=== PATIENT | male | born 1955 | race Caucasian/White ===

== ENCOUNTER 2016-12-05 04:07 | Emergency (ER) | payer OTHER ==
[~2016-12-05] VITALS: Ht 170.2 cm; Wt 81.9 kg
[~2016-12-05 04:07] MED LIST: SYN112 PO; metoprolol PO
[2016-12-05 04:09] VITALS: TEMP 36.5; Ht 170.2 cm; Wt 81.9 kg
[2016-12-05] MEDS ORDERED: SODIUM CHLORIDE 0.9% 1000ML 1,000 ML IV STA (04:27)
--- NOTE | 2016-12-05 04:28 | EMERGENCY ROOM VISIT NOTE ---
History Report prepared by Kumaribsabiha: Hima Garces Under the Supervision of: Fabiola WeaverO. First contact with patient: 04:12 Chief Complaint: VOMITING Stated Complaint: NAUSEA,VOMITING BLOOD? History of Present Illness The patient is a 61 year old male who presents to the Emergency Room with complaints of resolved blood in vomit occurring about one and a half hours ago. He had some abdominal which has resolved. He currently denies any nausea or pain. He currently complains of tiredness. He has chronic rectal bleeding related to hemorrhoids and a colonoscopy. He denies any history of endoscopy. He has a family history of bleeding ulcer but denies any personal history of ulcers. He denies any excessive alcohol use. He does not take any blood thinners. He took Mickie Hollister plus last evening around 6 pm for cold-like symptoms. The patient denies fevers, chills, or any other complaints. Source of History: patient Onset: about one and a half hours ago Position: other (global) Symptom Intensity: No pain Quality: other (Blood in vomit) Timing: resolved Associated Symptoms: + abdominal pain (resolved), + nausea (resolved), No chills, No fevers Review of Systems See HPI for pertinent positives and negatives. A total of ten systems were reviewed and were otherwise negative. Past Medical & Surgical Medical Problems: (1) Hemorrhoids (2) Thyroid disease Surgical Problems: (1) H/O colonoscopy Family History Patient reports no known family medical history. Social History Smoking Status: Never Smoker Marital Status: Occupation Status: employed Current/Historical Medications Scheduled Levothyroxine Sodium (Levothyroxine Sodium), 1 TAB PO DAILY Metoprolol Succ (Toprol Xl) (Toprol-Xl ), 200 MG PO DAILY Allergies Coded Allergies: No Known Allergies (Verified , 12/05/16) Physical Exam Vital Signs Date Time Temp Pulse Resp B/P Pulse Ox O2 Delivery O2 Flow Rate FiO2 12/05/16 04:49 53 12/05/16 04:40 98 Room Air 12/05/16 04:09 36.5 51 16 108/59 95 Room Air Physical Exam GENERAL: Awake, alert, well-appearing, in no distress HENT: Normocephalic, atraumatic. Oropharynx unremarkable. EYES: Normal conjunctiva. Sclera non-icteric. NECK: Supple. No nuchal rigidity. FROM. No JVD. RESPIRATORY: Clear to auscultation. CARDIAC: Regular rate, normal rhythm. Extremities warm and well perfused. Pulses equal. ABDOMEN: Soft, non-distended. No tenderness to palpation. No rebound or guarding. No masses. RECTAL: Deferred. MUSCULOSKELETAL: Chest examination reveals no tenderness. The back is symmetrical on inspection without obvious abnormality. There is no CVA tenderness to palpation. No joint edema. LOWER EXTREMITIES: Calves are equal size bilaterally and non-tender. No edema. No discoloration. NEURO: Normal sensorium. No sensory or motor deficits noted. SKIN: No rash or jaundice noted. Medical Decision & Procedures Laboratory Results 12/05/16 04:38 Red Blood Count 3.50, Mean Corpuscular Volume 95.7, Mean Corpuscular Hemoglobin 31.7, Mean Corpuscular Hemoglobin Concent 33.1, Mean Platelet Volume 9.3, Neutrophils (%) (Auto) 62.8, Lymphocytes (%) (Auto) 24.6, Monocytes (%) (Auto) 8.5, Eosinophils (%) (Auto) 3.4, Basophils (%) (Auto) 0.2, Neutrophils # (Auto) 3.82, Lymphocytes # (Auto) 1.50, Monocytes # (Auto) 0.52, Eosinophils # (Auto) 0.21, Basophils # (Auto) 0.01 12/05/16 04:38 Test 12/05/16 04:38 White Blood Count 6.09 K/uL (4.8-10.8) Red Blood Count 3.50 M/uL (4.7-6.1) Hemoglobin 11.1 g/dL (14.0-18.0) Hematocrit 33.5 % (42-52) Mean Corpuscular Volume 95.7 fL (80-100) Mean Corpuscular Hemoglobin 31.7 pg (25-34) Mean Corpuscular Hemoglobin Concent 33.1 g/dl (32-36) Platelet Count 129 K/uL (130-400) Mean Platelet Volume 9.3 fL (7.4-10.4) Neutrophils (%) (Auto) 62.8 % Lymphocytes (%) (Auto) 24.6 % Monocytes (%) (Auto) 8.5 % Eosinophils (%) (Auto) 3.4 % Basophils (%) (Auto) 0.2 % Neutrophils # (Auto) 3.82 K/uL (1.4-6.5) Lymphocytes # (Auto) 1.50 K/uL (1.2-3.4) Monocytes # (Auto) 0.52 K/uL (0.11-0.59) Eosinophils # (Auto) 0.21 K/uL (0-0.5) Basophils # (Auto) 0.01 K/uL (0-0.2) RDW Standard Deviation 51.7 fL (36.4-46.3) RDW Coefficient of Variation 14.8 % (11.5-14.5) Immature Granulocyte % (Auto) 0.5 % Immature Granulocyte # (Auto) 0.03 K/uL (0.00-0.02) Prothrombin Time 12.0 SECONDS (9.0-12.0) Prothromb Time International Ratio 1.1 (0.9-1.1) Activated Partial Thromboplast Time 28.2 SECONDS (21.0-31.0) Partial Thromboplastin Ratio 1.1 Anion Gap 4.0 mmol/L (3-11) Est Creatinine Clear Calc Drug Dose 89.5 ml/min Estimated GFR () 106.5 Estimated GFR (Non- 91.9 BUN/Creatinine Ratio 42.0 (10-20) Calcium Level 8.4 mg/dl (8.5-10.1) Total Bilirubin 0.7 mg/dl (0.2-1) Direct Bilirubin 0.2 mg/dl (0-0.2) Aspartate Amino Transf (AST/SGOT) 65 U/L (15-37) Alanine Aminotransferase (ALT/SGPT) 49 U/L (12-78) Alkaline Phosphatase 114 U/L (45-117) Total Protein 7.0 gm/dl (6.4-8.2) Albumin 2.8 gm/dl (3.4-5.0) Lipase 189 U/L (73-393) Laboratory results reviewed by me Medications Administered Medications (Trade) Dose Ordered Sig/Louise Route Start Time Stop Time Status Last Admin Dose Admin Sodium Chloride 1,000 ml @ 999 mls/hr Q1H1M STAT IV 12/05/16 04:27 12/05/16 05:27 DC 12/05/16 05:02 999 MLS/HR Pantoprazole Sodium/Syringe (Protonix Inj/ Syringe) 10 ml @ 5 mls/min NOW ONCE IV 12/05/16 04:30 12/05/16 04:31 DC 12/05/16 05:02 5 MLS/MIN ED Course 0412: The patient was evaluated in room A04B. A complete history and physical exam was performed. 0427: Sodium Chloride 1000 ml @ 999 mls/hr IV 0430: Pantoprazole Sodium 40 mg/Syringe 10 ml @ 5 mls/min IV 0526: I reevaluated the patient who feels much better. He is not vomiting. Discussed results and discharge instructions: He verbalized understanding and agreement. He will follow up with PCP and will take Pepcid. The patient is ready for discharge. Medical Decision Differential diagnosis includes but is not limited to gastritis, peptic ulcer disease, esophagitis, colitis. Patient was given IV fluids IV Zofran and IV Protonix. On repeat examination at 540 the patient's resting in no distress repeat abdominal exam the patient has no tenderness. I discussed evaluation with the patient is a slight elevation in his Bielen his hemoglobin is stable his coagulation studies are normal. Patient has a family history of ulcers has seen a GI doctor for colonoscopy in the past due to hemorrhoids. Patient would like to go home I've instructed the patient patient's that he needs to take Pepcid 20 mg twice a day until follow-up states he follows up with his family care physician in one week. Patient is to return for abdominal pain vomiting of blood or for any concerns Impression Primary Impression: Acute gastritis Scribe Attestation The scribe's documentation has been prepared under my direction and personally reviewed by me in its entirety. I confirm that the note above accurately reflects all work, treatment, procedures, and medical decision making performed by me. Departure Information Dispostion Home / Self-Care Referrals Baldomero Rose M.D. (PCP) Forms HOME CARE DOCUMENTATION FORM, IMPORTANT VISIT INFORMATION Patient Instructions ED PUD Vs Gastritis, My [facility] Additional Instructions Please take Pepcid 20 mg twice a day until follow-up. Return for worsening vomiting abdominal pain bleeding or for any concerns. Work Instructions Return To Work: 1 day Lifting Limitations: none Problem Qualifiers Primary Impression: Acute gastritis Gastritis type: unspecified gastritis Gastritis bleeding: with bleeding Qualified Codes: K29.01 - Acute gastritis with bleeding
[2016-12-05] MEDS ORDERED: PANTOprazole INJ 40 MG in SYRINGE 0 ML IV ONE (04:30)
[2016-12-05 04:40] VITALS: O2SAT 98
[2016-12-05] MEDS ORDERED: LEVO100T7 PO (04:40)
[2016-12-05] MEDS ORDERED: METO100T44 PO (04:40)
[2016-12-05 04:58] LABS: HEMATOCRIT 33.5 % (42-52); MEAN CELL VOLUME 95.7 fL (80-100); MEAN CORPUSCULAR HEMOGLOBIN 31.7 pg (25-34); MEAN CORPUSCULAR HGB CONC 33.1 g/dl (32-36); MEAN PLATELET VOLUME 9.3 fL (7.4-10.4); PLATELET COUNT 129 K/uL (130-400); WHITE BLOOD COUNT 6.09 K/uL (4.8-10.8)
[2016-12-05 05:08] LABS: INR 1.1 (0.9-1.1); PARTIAL THROMBOPLASTIN RATIO 1.1
[2016-12-05 05:15] LABS: CALCIUM 8.4 mg/dl (8.5-10.1); CREATININE 0.91 mg/dl (0.60-1.40); POTASSIUM 4.5 mmol/L (3.5-5.1)
[2016-12-05 05:28] LABS: BASO % 0.2 %; BASO ABS # 0.01 K/uL (0-0.2); COMPLETE YES; EOS % 3.4 %; IG% 0.5 %; LYMPH % 24.6 %; MONO % 8.5 %; NEUT % 62.8 %
[2016-12-05 05:54] VITALS: BP 122/65; PULSE 59; O2SAT 97
== END 2016-12-05 05:56 | disposition home or self-care (01) ==
LOC: C.EDB 04:08 → C.EDA 05:56
DX: K29.01 Acute gastritis with bleeding (principal); E03.9 Hypothyroidism, unspecified

== ENCOUNTER → 2016-12-09 | Outpatient (CLI) | payer OTHER ==
[~2016-12-09] MED LIST changes: +LEVO100T7 PO; +METO100T44 PO; -SYN112 PO; -metoprolol PO
[2016-12-09 09:48] LABS: BASO % 0.4 %; BASO ABS # 0.02 K/uL (0-0.2); COMPLETE YES; EOS % 3.4 %; IG% 0.2 %; LYMPH % 33.5 %; LYMPH ABS # 1.67 K/uL (1.2-3.4); MEAN CORPUSCULAR HGB CONC 33.8 g/dl (32-36); MEAN PLATELET VOLUME 9.3 fL (7.4-10.4); NEUT % 50.5 %; PLATELET COUNT 134 K/uL (130-400); RED BLOOD COUNT 3.37 M/uL (4.7-6.1); WHITE BLOOD COUNT 4.99 K/uL (4.8-10.8)
[2016-12-09 10:34] LABS: ALKALINE PHOSPHATASE 127 U/L (45-117); ALT/SGPT 55 U/L (12-78); AST/SGOT 74 U/L (15-37); BLOOD UREA NITROGEN 18 mg/dl (7-18); BUN/CREATININE RATIO 19.7 (10-20); CALCIUM 8.6 mg/dl (8.5-10.1); CARBON DIOXIDE 30 mmol/L (21-32); CHLORIDE 107 mmol/L (98-107); CREATININE 0.92 mg/dl (0.60-1.40); GLUCOSE 59 mg/dl (70-99); POTASSIUM 4.2 mmol/L (3.5-5.1); SODIUM 144 mmol/L (136-145)
[2016-12-09 10:45] LABS: ALB/GLOB RATIO 0.8 (0.9-2); FERRITIN 70.8 ng/ml (8.0-388.0)
== END | disposition home or self-care (01) ==
LOC: C.LAB 08:17
PROVIDERS: ATTEND Internal Medicine Geriatric Medicine
DX: E03.9 Hypothyroidism, unspecified (principal); D64.9 Anemia, unspecified; R79.89 Other specified abnormal findings of blood chemistry

== ENCOUNTER → 2017-01-13 | Outpatient (CLI) | payer OTHER ==
[2017-01-13 08:18] LABS: BASO % 0.2 %; BASO ABS # 0.01 K/uL (0-0.2); COMPLETE YES; HEMATOCRIT 34.8 % (42-52); LYMPH % 34.5 %; LYMPH ABS # 1.39 K/uL (1.2-3.4); MEAN CELL VOLUME 94.6 fL (80-100); MEAN CORPUSCULAR HEMOGLOBIN 31.3 pg (25-34); MEAN PLATELET VOLUME 8.8 fL (7.4-10.4); MONO % 13.2 %; NEUT % 49.1 %; PLATELET COUNT 122 K/uL (130-400); RED BLOOD COUNT 3.68 M/uL (4.7-6.1); WHITE BLOOD COUNT 4.03 K/uL (4.8-10.8)
[2017-01-13 08:55] LABS: PROSTATE SPECIFIC ANTIGEN 0.367 ng/ml (0.000-4.000); THYROID STIMULATING HORMONE 0.677 uIu/ml (0.300-4.500)
== END | disposition home or self-care (01) ==
LOC: C.LAB 08:00
PROVIDERS: ATTEND Internal Medicine Geriatric Medicine
DX: E03.9 Hypothyroidism, unspecified (principal); D64.9 Anemia, unspecified; R79.89 Other specified abnormal findings of blood chemistry

== ENCOUNTER → 2017-03-28 | Outpatient (CLI) | payer OTHER ==
[~2017-03-28] MED LIST changes: -METO100T44 PO; +METO1TAB69 PO
--- NOTE | 2017-03-28 09:49 | DIAGNOSTIC IMAGING REPORT ---
ABDOMEN LIMITED (US) CLINICAL HISTORY: Assess for hepatosplenomegaly. COMPARISON STUDY: Abdominal ultrasound 07/27/2011. FINDINGS: The liver is normal in size measuring 13 cm in length. Slightly nodular contour to the liver consistent with cirrhosis. The liver is slightly heterogeneous. No hepatic masses. The spleen measures 11.5 cm in length. Multiple punctate calcified granulomas within the spleen. IMPRESSION: 1. The liver and spleen are normal in size. 2. Slightly nodular contour to the liver consistent with cirrhosis. Electronically signed by: Alejandro Fields M.D. 03/28/2017 9:47 AM Dictated Date/Time: 03/28/2017 9:45 AM
== END | disposition home or self-care (01) ==
LOC: C.ULTR 09:04
PROVIDERS: ATTEND Internal Medicine Hematology & Oncology
DX: R94.5 Abnormal results of liver function studies (principal); D64.9 Anemia, unspecified; D69.6 Thrombocytopenia, unspecified

== ENCOUNTER → 2018-02-06 | Outpatient (CLI) | payer OTHER ==
[~2018-02-06] MED LIST changes: +METO100T44 PO; -METO1TAB69 PO
--- NOTE | 2018-02-06 08:36 | DIAGNOSTIC IMAGING REPORT ---
CHEST 2 VIEWS ROUTINE HISTORY: 62 years-old Male R05 [id number] chronic cough. COMPARISON: Chest and rib radiographs 10/26/2010 TECHNIQUE: PA and lateral views of the chest FINDINGS: Cardiac silhouette is mildly enlarged. No overt pulmonary edema. There is no pneumothorax, pleural effusion or lobar airspace consolidation. Degenerative changes are seen throughout the shoulders and spine. Subsegmental opacities about the lateral right lung base. IMPRESSION: 1. Subsegmental opacities about the lateral right lung base suggest probable atelectasis or scarring with pneumonitis thought to be less likely. 2. Cardiomegaly without overt pulmonary edema. The above report was generated using voice recognition software. It may contain grammatical, syntax or spelling errors. Electronically signed by: Parish Degroot M.D. 02/06/2018 8:35 AM Dictated Date/Time: 02/06/2018 8:30 AM
== END | disposition home or self-care (01) ==
LOC: C.RADBC 07:48
PROVIDERS: ATTEND Internal Medicine Geriatric Medicine
DX: R05 Cough (principal)

== ENCOUNTER 2021-05-27 17:17 | Inpatient (IN) ==
--- NOTE | 2021-05-27 18:29 | Emergency Department Note ---
Impression & Plan Hypoxia, Cough, SOB (shortness of breath), Pneumonia ED Provider Note NAME: TODD GUSTAFSON AGE: 66 SEX: M : 1955 ARRIVES VIA: Walk-In INFORMANT: [Patient][family] ED PROVIDER(S): [Jerson Rios MD] CHIEF COMPLAINT: Cough, short of breath HISTORY OF PRESENT ILLNESS: The patient is a 66-year-old male who has cirrhosis. He has had upper GI bleeding in the past. No recent nausea, vomiting or diarrhea. No fever. The patient complains of a chronic cough that has been ongoing for years but has worsened in the last week. He has a lot of drainage he believes from his sinuses. He has noticed increasing shortness of breath, especially with exertion. Today, after walking, his O2 saturation was checked by his granddaughter and the value was 84%. He was brought to the hospital for evaluation. He felt he was breathing shallow and that his heart was beating fast. The patient denies any recent Covid exposures. He is vaccinated against COVID- 19. He does have some inhalers to use for his lungs but does not think he was ever diagnosed with COPD. He does not wear oxygen at home. Of note, the patient has not taken his blood pressure medication in 2 months, he is not taking it because it makes him feel groggy. The patient did have a flu shot last week. REVIEW OF SYSTEMS: See HPI for pertinent positives and negatives. A total of ten systems were reviewed and were otherwise negative. PMHx/PSHx: See Below SOCIAL HISTORY: See Below. PHYSICAL EXAM: GENERAL: Patient is in no acute distress. HEENT: No acute trauma, normocephalic atraumatic, mucous membranes moist, no nasal congestion, no scleral icterus. NECK: No stridor, no adenopathy, no meningismus, trachea is midline. LUNGS: Crackles at both bases especially on the right. No obvious respiratory distress, no wheezing. HEART: Slightly tachycardic with a regular rhythm. There is a 2/6 systolic murmur. ABDOMEN: Soft, nontender, bowel sounds positive, no hernias, no peritonitis. EXTREMITIES: No cyanosis, mild bilateral pedal edema, full range of motion of all the joints without pain or difficulty, no signs for acute trauma. NEUROLOGIC: Oriented x 3, no acute motor or sensory deficits, no focal weakness. SKIN: No rash, no jaundice, no diaphoresis. DIFFERENTIAL DIAGNOSIS: Reactive airway disease, pneumonia, pneumothorax, COPD, COVID-19, anemia, CHF, infection, cardiac ischemia, pulmonary embolism, bronchitis, musculoskeletal, gastrointestinal, as well as other pathologies. EMERGENCY DEPARTMENT COURSE/PROCEDURES: ECG: Indication was shortness of breath. The ECG shows a normal sinus rhythm with a rate of 97. There is some baseline artifact. There is no ST elevation, no PVCs. The QTc is 439. Continuous Cardiac Monitoring: An order was placed for continuous cardiac monitoring. The monitor shows a rate of 111 with sinus tachycardia. Critical Care Note: I have personally spent 42 minutes of critical care time in the direct management of this patient. This includes bedside care, interpretation of diagnostic studies, and testing, discussion with consultants, patient, and family members, and other required patient management activities. This 42 minutes is in excess of all separately billable procedures. MEDICAL DECISION MAKING: There is no leukocytosis or concerning anemia. There is a normal platelet count. No worrisome coagulopathy. No significant electrolyte abnormality or kidney failure. Some subtle liver enzyme elevations were noted although, these elevations have been seen before. The patient appears to be in a euthyroid state. ECG showed a sinus rhythm, no acute ischemia. Cardiac enzyme testing x1 was not consistent with acute cardiac injury. BNP was not elevated making CHF less likely. Covid testing returned negative. Chest x-ray suggested a bilateral patchy pneumonia. No pneumothorax. Chest CT did not show PE, a bilateral patchy pneumonia was seen. The patient received IV cefepime. He was given albuterol via MDI. The patient presents hypoxic, short of breath. He appears to have pneumonia by x-ray and CT imaging. He is doing better since he was placed on nasal cannula o xygen. The patient deserves a hospital stay given his findings and complaints. I did speak with the patient and case management. The on-call hospitalist was consulted. Past Med/Surg History Medical History (Updated 05/28/21 @ 03:23 by Jerson Rios MD) Anemia BPH (benign prostatic hyperplasia) Cirrhosis Closed left femoral fracture april 2018 Elevated liver enzymes Esophageal varices BANDING 09/2018 GERD (gastroesophageal reflux disease) H/O Graves' disease Hemorrhoids Hypothyroidism SVT (supraventricular tachycardia) FOLLOWS W/ DR. MADRIGAL Surgical History History of colonoscopy History of esophagogastroduodenoscopy (EGD) History of open reduction and internal fixation (ORIF) procedure LEFT FEMUR Family History Brother Family history of diabetes mellitus Other Family history non-contributory High cholesterol Myocardial infarction Social History Smoking Status: Never smoker Second Hand Exposure: No; Hx Alcohol Use: No Hx Substance Use: No Preferred Language: Luxembourgish Communication Ability: Effective Visual Impairment: Limited Hearing Ability: Normal Escalator Constructor Required: No Beliefs That Will Affect Care: None Current Living Situation: Spouse Feels Safe at Home: Yes Assistive Devices: Glasses Allergies Allergies Allergy/AdvReac Type Severity Reaction Status Date / Time Sulfa (Sulfonamide Allergy Intermediate Hives Unverified 05/27/21 18:22 Antibiotics) No Known Drug Allergies Allergy Verified 06/14/20 10:06 Home Meds Home Medications Medication Instructions Recorded Confirmed hlunwmpg-duh-uixto acid 300 1 tab PO DAILY 06/24/18 05/27/21 mcg-lycopene 600 mcg-lutein 300 mcg tablet (Centrum Silver Men) pantoprazole 40 mg tablet,delayed 40 mg PO QAM 10/08/18 05/27/21 release propranolol 60 mg tablet 60 mg PO BID 10/08/18 05/27/21 fluticasone propionate 50 2 sprays INTRANASAL DAILY PRN #1 gm 04/21/19 05/27/21 mcg/actuation nasal spray,suspension polyethylene glycol 3350 17 17 gm PO DAILY PRN #1 gm 04/21/19 05/27/21 gram/dose oral powder psyllium husk 3.4 gram/5.4 gram 1 tbs PO DAILY PRN #60 gm 04/21/19 05/27/21 oral powder benzonatate 100 mg capsule 100 mg PO TID PRN 05/27/21 05/27/21 fluticasone propionate 110 1 puff INHALATION BID 05/27/21 05/27/21 mcg/actuation HFA aerosol inhaler (Flovent HFA) Previous Rx's Medication Instructions Recorded levothyroxine 112 mcg tablet 112 mcg PO QAM #90 tab 07/31/19 Results & Data (ED) Vital Signs Vital Signs - 24 hr 05/27/21 18:02 05/27/21 18:06 05/27/21 19:42 Temperature 37.0 C Temperature Source Temporal Artery Scan Pulse Rate 111 H Pulse Rate [Right Finger] 98 H Pulse Rhythm [Right Finger] Regular Pulse Strength [Right Finger] Normal Respiratory Rate 20 18 Respiratory Effort / Characteristics Non-Labored Spontaneous Non-Labored Spontaneous Respiratory Depth Normal Normal Respiratory Pattern Regular Blood Pressure 147/82 H Blood Pressure [Left Arm] 161/97 H Blood Pressure Mean 103 Blood Pressure Mean [Left Arm] 118 Blood Pressure Position Sitting Blood Pressure Position [Left Arm] Sitting Pulse Oximetry 88 L 93 Oxygen Delivery Method Room Air Nasal Cannula Nasal Cannula Oxygen Flow Rate 3 2 Sepsis Recent Fever Within 48 Hours No Sepsis New/Unexplained Change in Mental Status No Sepsis Action Taken by Nursing No Action Required 05/27/21 21:00 05/27/21 21:57 05/27/21 23:00 Temperature Temperature Source Pulse Rate Pulse Rate [Right Finger] 89 85 99 H Pulse Rhythm [Right Finger] Regular Pulse Strength [Right Finger] Normal Respiratory Rate 18 18 18 Respiratory Effort / Characteristics Non-Labored Spontaneous Non-Labored Spontaneous Non-Labored Spontaneous Respiratory Depth Normal Normal Respiratory Pattern Regular Regular Blood Pressure Blood Pressure [Left Arm] 139/84 110/69 Blood Pressure Mean Blood Pressure Mean [Left Arm] 102 82 Blood Pressure Position Blood Pressure Position [Left Arm] Sitting Sitting Pulse Oximetry 93 96 94 Oxygen Delivery Method Nasal Cannula Nasal Cannula Nasal Cannula Oxygen Flow Rate 2 2 2 Sepsis Recent Fever Within 48 Hours Sepsis New/Unexplained Change in Mental Status Sepsis Action Taken by Detention Medications Current Medication List: was personally reviewed by me Laboratory Data Attestation: I reviewed the patient's lab results. Result diagrams: 05/27/21 18:59 05/27/21 18:59 Lab Results 05/27/21 05/27/21 05/27/21 Range/Units 18:59 18:59 18:59 WBC 7.21 (4.8-10.8) K/uL RBC 3.93 L (4.7-6.1) M/uL Hgb 13.8 L (14.0-18.0) g/dL Hct 39.4 L (42-52) % MCV 100.3 H (80-100) fL MCH 35.1 H (25-34) pg MCHC 35.0 (32-36) g/dL RDW Std Deviation 54.7 H (36.4-46.3) fL RDW Coeff of Vida 14.9 H (11.5-14.5) % Plt Count 135 (130-400) K/uL MPV 9.5 (7.4-10.4) fL Immature Gran % (Auto) 0.3 % Neut % (Auto) 66.4 % Lymph % (Auto) 19.3 % [place] % (Auto) 11.5 % Eos % (Auto) 2.4 % Baso % (Auto) 0.1 % Neut # (Auto) 4.79 (1.4-6.5) K/uL Lymph # (Auto) 1.39 (1.2-3.4) K/uL [place] # (Auto) 0.83 H (0.11-0.59) K/uL Eos # (Auto) 0.17 (0-0.5) K/uL Baso # (Auto) 0.01 (0-0.2) K/uL Immature Gran # (Auto) 0.02 (0.00-0.02) K/uL PT 11.9 (9.0-12.0) Seconds INR 1.2 H (0.9-1.1) APTT 32.1 H (21.0-31.0) Seconds PTT Ratio 1.2 Sodium 140 (136-145) mmol/L Potassium 4.3 (3.5-5.1) mmol/L Chloride 110 H (98-107) mmol/L Carbon Dioxide 22 (21-32) mmol/L Anion Gap 8.0 (3-11) BUN 20 H (7-18) mg/dl Creatinine 0.87 (0.6-1.4) mg/dl Est Cr Clr Drug Dosing 83.5 ml/min Est GFR ( Amer) 105.7 ml/min Est GFR (Non-Af Amer) 91.2 ml/min BUN/Creatinine Ratio 23.2 H (10-20) Glucose 117 H (70-99) mg/dl Calcium 9.1 (8.5-10.1) mg/dl Magnesium 1.9 (1.8-2.4) mg/dl Total Bilirubin 1.4 H (0.2-1) mg/dl AST 75 H (15-37) U/L ALT 48 (12-78) U/L Alkaline Phosphatase 220 H (45-117) U/L Troponin I < 0.015 (0-0.045) ng/ml NT-Pro-B Natriuret Pep 35 (0-900) pg/ml Total Protein 7.2 (6.4-8.2) gm/dl Albumin 2.6 L (3.4-5.0) gm/dl Globulin 4.6 H (2.5-4.0) gm/dl Albumin/Globulin Ratio 0.6 L (0.9-2) TSH 0.615 (0.300-4.500) uIu/ml COVID-19 Eval Order SARS-CoV-2 (PCR) (Negative) 05/27/21 05/27/21 Range/Units 18:59 18:59 WBC (4.8-10.8) K/uL RBC (4.7-6.1) M/uL Hgb (14.0-18.0) g/dL Hct (42-52) % MCV (80-100) fL MCH (25-34) pg MCHC (32-36) g/dL RDW Std Deviation (36.4-46.3) fL RDW Coeff of Vida (11.5-14.5) % Plt Count (130-400) K/uL MPV (7.4-10.4) fL Immature Gran % (Auto) % Neut % (Auto) % Lymph % (Auto) % [place] % (Auto) % Eos % (Auto) % Baso % (Auto) % Neut # (Auto) (1.4-6.5) K/uL Lymph # (Auto) (1.2-3.4) K/uL [place] # (Auto) (0.11-0.59) K/uL Eos # (Auto) (0-0.5) K/uL Baso # (Auto) (0-0.2) K/uL Immature Gran # (Auto) (0.00-0.02) K/uL PT (9.0-12.0) Seconds INR (0.9-1.1) APTT (21.0-31.0) Seconds PTT Ratio Sodium (136-145) mmol/L Potassium (3.5-5.1) mmol/L Chloride (98-107) mmol/L Carbon Dioxide (21-32) mmol/L Anion Gap (3-11) BUN (7-18) mg/dl Creatinine (0.6-1.4) mg/dl Est Cr Clr Drug Dosing ml/min Est GFR ( Amer) ml/min Est GFR (Non-Af Amer) ml/min BUN/Creatinine Ratio (10-20) Glucose (70-99) mg/dl Calcium (8.5-10.1) mg/dl Magnesium (1.8-2.4) mg/dl Total Bilirubin (0.2-1) mg/dl AST (15-37) U/L ALT (12-78) U/L Alkaline Phosphatase (45-117) U/L Troponin I (0-0.045) ng/ml NT-Pro-B Natriuret Pep (0-900) pg/ml Total Protein (6.4-8.2) gm/dl Albumin (3.4-5.0) gm/dl Globulin (2.5-4.0) gm/dl Albumin/Globulin Ratio (0.9-2) TSH (0.300-4.500) uIu/ml COVID-19 Eval Order Covid19 at [facility] SARS-CoV-2 (PCR) NEGATIVE (Negative) Administered Medications Lactated Ringer's (Lr) 1,000 mls @ 60 mls/hr IV .[id number] ONE Stop: 05/28/21 17:09 Last Admin: 05/28/21 01:31 Dose: 60 mls/hr Documented by: [id number] Propranolol HCl (Propranolol Hcl 20 Mg Tab) 60 mg PO BID DANNIELLE Stop: 06/27/21 00:59 Last Admin: 05/28/21 02:25 Dose: 60 mg Documented by: [id number] Discontinued Medications Albuterol (Albut/Ipratrop 3mg/0.5mg Neb 3 Ml Vial) 3 ml NEB NOW STA Stop: 05/27/21 21:40 Last Admin: 05/27/21 21:57 Dose: 3 ml Documented by: [id number] Cefepime HCl (Maxipime) 2,000 mg in 20 mls @ 5 mls/min IV NOW STA; Protocol Stop: 05/27/21 21:42 Last Admin: 05/27/21 23:21 Dose: 5 mls/min Documented by: [id number] Magnesium Sulfate/Dextrose (Magnesium Sulfate / D5w) 1 gm in 100 mls @ 50 mls/hr IV ONE ONE Stop: 05/28/21 00:44 Last Admin: 05/28/21 00:17 Dose: 50 mls/hr Documented by: [id number] Doxycycline Hyclate 100 mg/ (Dextrose) 110 mls @ 50 mls/hr IV NOW ONE Stop: 05/28/21 01:11 Last Admin: 05/28/21 00:17 Dose: 50 mls/hr Documented by: [id number] Ioversol (Optiray 320 125ml) 121 ml IV ONCE ONE Stop: 05/27/21 20:57 Last Admin: 05/27/21 21:00 Dose: 121 ml Documented by: [id number] Imaging Data Radiologist's Impression: Chest X-Ray 05/27/21 18:23 XR chest 1V portable CLINICAL HISTORY: Shortness of breath. COMPARISON STUDY: Chest radiograph June 25, 2018. FINDINGS: Patient is rotated. Lung volumes are mildly diminished. Cardiomegaly is unchanged. Interstitial thickening is noted. There are bibasilar opacities, greater on the right. No pneumothorax or pleural effusion is noted. IMPRESSION: Interstitial thickening and bibasilar opacities, greater on the right. The findings could reflect an infectious process or pulmonary edema. Radiographic follow to ensure resolution is recommended. ACT 112: Negative or not required by law. Electronically signed by: Tobias Tapia M.D. 05/27/2021 7:[address] for PE: There is no evidence for pulmonary embolism. No thoracic aneurysm or dissection. Bilateral pulmonary fibrosis with honeycombing. Possi ble superimposed patchy peripheral groundglass infiltrates which may be atypical pneumonia or nonspecific pneumonitis. Right paratracheal lymph node which may be reactive. Possible esophagitis. Cirrhosis. Discharge Plan Visit Data Chief Complaint: Cough Stated Complaint: COUGH, HIGH BP ED Provider: Jerson Rios Discharge Problem: Hypoxia, Cough, SOB (shortness of breath), Pneumonia Patient Disposition: Admitted As Inpatient Condition: Fair Discharge Instructions Interventions: ED Discharge Assessment Last Done: 05/27/21 23:51
[2021-05-27 19:15] LABS: Basophils # (auto) 0.01 K/uL (0-0.2); Basophils % (auto) 0.1 %; Eosinophils # (auto) 0.17 K/uL (0-0.5); Eosinophils % (auto) 2.4 %; Hematocrit (blood only) 39.4 % (42-52); Hemoglobin 13.8 g/dL (14.0-18.0); Immature Granulocytes # (auto) 0.02 K/uL (0.00-0.02); Immature Granulocytes % (auto) 0.3 %; Lymphocytes # (auto) 1.39 K/uL (1.2-3.4); Lymphocytes % (auto) 19.3 %; Mean Corpuscular Hemoglobin 35.1 pg (25-34); Mean Corpuscular Volume 100.3 fL (80-100); Mean Platelet Volume 9.5 fL (7.4-10.4); Monocytes # (auto) 0.83 K/uL (0.11-0.59); Monocytes % (auto) 11.5 %; Neutrophils # (auto) 4.79 K/uL (1.4-6.5); Neutrophils % (auto) 66.4 %; Platelet Count 135 K/uL (130-400); RDW Coefficient of Variation 14.9 % (11.5-14.5); RDW Standard Deviation 54.7 fL (36.4-46.3); Red Blood Count 3.93 M/uL (4.7-6.1); White Blood Count 7.21 K/uL (4.8-10.8)
[2021-05-27 19:25] LABS: INR 1.2 (0.9-1.1); Partial Thromboplastin Ratio 1.2; Partial Thromboplastin Time 32.1 Seconds (21.0-31.0); Prothrombin Time 11.9 Seconds (9.0-12.0)
[2021-05-27 19:39] LABS: Alanine Aminotransferase 48 U/L (12-78); Albumin Level 2.6 gm/dl (3.4-5.0); Aspartate Aminotransferase 75 U/L (15-37); BUN Creatinine Ratio 23.2 (10-20); Blood Urea Nitrogen 20 mg/dl (7-18); Calcium 9.1 mg/dl (8.5-10.1); Carbon Dioxide 22 mmol/L (21-32); Chloride 110 mmol/L (98-107); Creatinine Clr Calc Pharmacy 83.5 ml/min; Est GFR (African American) 105.7 ml/min; Est GFR (Non-African American) 91.2 ml/min; Glucose 117 mg/dl (70-99); Magnesium 1.9 mg/dl (1.8-2.4); Potassium 4.3 mmol/L (3.5-5.1); Sodium 140 mmol/L (136-145)
--- NOTE | 2021-05-27 19:48 | XRay Report ---
XR chest 1V portable CLINICAL HISTORY: Shortness of breath. COMPARISON STUDY: Chest radiograph June 25, 2018. FINDINGS: Patient is rotated. Lung volumes are mildly diminished. Cardiomegaly is unchanged. Intersti tial thickening is noted. There are bibasilar opacities, greater on the right. No pneumothorax or ple ural effusion is noted. IMPRESSION: Interstitial thickening and bibasilar opacities, greater on the right. The findings coul d reflect an infectious process or pulmonary edema. Radiographic follow to ensure resolution is recom mended. ACT 112: Negative or not required by law. Electronically signed by: Tobias Tapia M.D. 05/27/2021 7:46 PM
[2021-05-27 19:50] LABS: Albumin Globulin Ratio 0.6 (0.9-2); Alkaline Phosphatase 220 U/L (45-117); Bilirubin,Total 1.4 mg/dl (0.2-1); Globulin 4.6 gm/dl (2.5-4.0); Thyroid Stimulating Hormone 0.615 uIu/ml (0.300-4.500); Total Protein 7.2 gm/dl (6.4-8.2); Troponin I < 0.015 ng/ml (0-0.045)
[2021-05-27 20:12] LABS: NT Pro B Type Natriuretic Pept 35 pg/ml (0-900)
[2021-05-27] MEDS ORDERED: OPTIRAY 320 125ml IV ONE (20:56)
[2021-05-27] MEDS ORDERED: ALBUT/IPRATROP 3MG/0.5MG NEB 3 ML VIAL NEB STA (21:39)
[2021-05-27] MEDS ORDERED: CEFEPIME 2,000 MG/20 ML VIAL IV STA (21:39)
[2021-05-27] MEDS ORDERED: MAGNESIUM SULFATE / D5W 1 GM/100 ML BAG IV ONE (22:45)
--- NOTE | 2021-05-27 22:58 | History & Physical Report ---
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 SCDs Re: History variceal bleed Full code Text document was generated using [employer] voice recognition software. It may contain grammatical or spelling errors. Kindly contact undersigned for clarification of any documentation item in question. History of Present Illness Chief Complaint: Worsening cough, shortness of breath Primary Care Provider: Suresh Mathis MD History obtained from patient and records. Medical history significant for PSVT, mild aortic stenosis, hypothyroidism, cryp togenic cirrhosis, hepatocellular carcinoma status post chemoembolization and ablation, history of variceal bleed, chronic anemia (baseline hemoglobin 13) Last confinement 2017 for UGI B secondary to esophageal varices. Patient noted increased sinus congestion the last few days. Cough symptoms later productive of yellow sputum without chest pain. Increasing shortness of breath especially on exertion. No fluid retention. No fever, no chills. No known recent COVID-19 contacts. Patient completed COVID-19 vaccination. O2 sats 80s at home. At the ER, patient received Cefepime and neb treatment. Patient currently feeling much better. Medical History as above Surgical History : Hip fracture surgery Family History : DM, skin cancer, heart disease Personal/Social history : Non-smoker, no EtOH intake, retired restaurant employee Allergies Allergy/AdvReac Type Severity Reaction Status Date / Time Sulfa (Sulfonamide Allergy Intermediate Hives Unverified 05/27/21 18:22 Antibiotics) No Known Drug Allergies Allergy Verified 06/14/20 10:06 Home Medications Medication Instructions Recorded Confirmed Type dccsodfr-wbc-vchkb acid 300 1 tab PO DAILY 06/24/18 05/27/21 History mcg-lycopene 600 mcg-lutein 300 mcg tablet (Centrum Silver Men) pantoprazole 40 mg tablet,delayed 40 mg PO QAM 10/08/18 05/27/21 History release propranolol 60 mg tablet 60 mg PO BID 10/08/18 05/27/21 History fluticasone propionate 50 2 sprays INTRANASAL DAILY PRN #1 gm 04/21/19 05/27/21 History mcg/actuation nasal spray,suspension polyethylene glycol 3350 17 17 gm PO DAILY PRN #1 gm 04/21/19 05/27/21 History gram/dose oral powder psyllium husk 3.4 gram/5.4 gram 1 tbs PO DAILY PRN #60 gm 04/21/19 05/27/21 History oral powder levothyroxine 112 mcg tablet 112 mcg PO QAM #90 tab 07/31/19 05/27/21 Rx benzonatate 100 mg capsule 100 mg PO TID PRN 05/27/21 05/27/21 History fluticasone propionate 110 1 puff INHALATION BID 05/27/21 05/27/21 History mcg/actuation HFA aerosol inhaler (Flovent HFA) Past Med/Surg History Medical History (Updated 05/28/21 @ 03:23 by Jerson Rios MD) Anemia BPH (benign prostatic hyperplasia) Cirrhosis Closed left femoral fracture april 2018 Elevated liver enzymes Esophageal varices BANDING 09/2018 GERD (gastroesophageal reflux disease) H/O Graves' disease Hemorrhoids Hypothyroidism SVT (supraventricular tachycardia) FOLLOWS W/ DR. MADRIGAL Surgical History History of colonoscopy History of esophagogastroduodenoscopy (EGD) History of open reduction and internal fixation (ORIF) procedure LEFT FEMUR Family History Brother Family history of diabetes mellitus Other Family history non-contributory High cholesterol Myocardial infarction Social History Smoking Status: Never smoker Second Hand Exposure: No; Hx Alcohol Use: No Hx Substance Use: No Preferred Language: Chilean Communication Ability: Effective Visual Impairment: Limited Hearing Ability: Normal Molder Setter Required: No Beliefs That Will Affect Care: None Current Living Situation: Spouse Feels Safe at Home: Yes Assistive Devices: Glasses Review of Systems Review of Systems: As per HPI, all 10 systems reviewed, all other ROS negative Physical Exam Physical Exam: GENERAL: Comfortable, pleasant, mild hearing impairment, no respiratory distress SKIN: Pallor,, warm HEENT: Bespectacled, pale palpebral conjunctivae, no ptosis, dry buccal mucosa, nasal cannula in place NECK : Supple, no tenderness CHEST : Decreased breath sounds, no tenderness HEART : RRR, systolic murmur best heard over sternal border ABDOMEN: Some distention, nontender EXTREMITIES : No LE swelling/tenderness, no other conspicuous deformities noted NEUROLOGIC : Coherent, no facial asymmetry, mild hearing impairment, no other gross focality Results & Data Results & Data ([facility]) Vital Signs (Past 12 Hours) Vital Signs Temp Pulse Pulse Resp BP BP Pulse Ox 05/27/21 21:57 85 18 96 05/27/21 21:00 89 18 139/84 93 05/27/21 19:42 98 H 18 161/97 H 93 05/27/21 18:02 37.0 C 111 H 20 147/82 H 88 L Laboratory Results Laboratory Results WBC 7.21 K/uL (4.8-10.8) 05/27/21 18:59 RBC 3.93 M/uL (4.7-6.1) L 05/27/21 18:59 Hgb 13.8 g/dL (14.0-18.0) L 05/27/21 18:59 Hct 39.4 % (42-52) L 05/27/21 18:59 MCV 100.3 fL (80-100) H 05/27/21 18:59 MCH 35.1 pg (25-34) H 05/27/21 18:59 MCHC 35.0 g/dL (32-36) 05/27/21 18:59 RDW Std Deviation 54.7 fL (36.4-46.3) H 05/27/21 18:59 RDW Coeff of Vida 14.9 % (11.5-14.5) H 05/27/21 18:59 Plt Count 135 K/uL (130-400) 05/27/21 18:59 MPV 9.5 fL (7.4-10.4) 05/27/21 18:59 Immature Gran % (Auto) 0.3 % 05/27/21 18:59 Neut % (Auto) 66.4 % 05/27/21 18:59 Lymph % (Auto) 19.3 % 05/27/21 18:59 [place] % (Auto) 11.5 % 05/27/21 18:59 Eos % (Auto) 2.4 % 05/27/21 18:59 Baso % (Auto) 0.1 % 05/27/21 18:59 Neut # (Auto) 4.79 K/uL (1.4-6.5) 05/27/21 18:59 Lymph # (Auto) 1.39 K/uL (1.2-3.4) 05/27/21 18:59 [place] # (Auto) 0.83 K/uL (0.11-0.59) H 05/27/21 18:59 Eos # (Auto) 0.17 K/uL (0-0.5) 05/27/21 18:59 Baso # (Auto) 0.01 K/uL (0-0.2) 05/27/21 18:59 Immature Gran # (Auto) 0.02 K/uL (0.00-0.02) 05/27/21 18:59 PT 11.9 Seconds (9.0-12.0) 05/27/21 18:59 INR 1.2 (0.9-1.1) H 05/27/21 18:59 APTT 32.1 Seconds (21.0-31.0) H 05/27/21 18:59 PTT Ratio 1.2 05/27/21 18:59 Sodium 140 mmol/L (136-145) 05/27/21 18:59 Potassium 4.3 mmol/L (3.5-5.1) 05/27/21 18:59 Chloride 110 mmol/L (98-107) H 05/27/21 18:59 Carbon Dioxide 22 mmol/L (21-32) 05/27/21 18:59 Anion Gap 8.0 (3-11) 05/27/21 18:59 BUN 20 mg/dl (7-18) H 05/27/21 18:59 Creatinine 0.87 mg/dl (0.6-1.4) 05/27/21 18:59 Est Cr Clr Drug Dosing 83.5 ml/min 05/27/21 18:59 Est GFR ( Amer) 105.7 ml/min 05/27/21 18:59 Est GFR (Non-Af Amer) 91.2 ml/min 05/27/21 18:59 BUN/Creatinine Ratio 23.2 (10-20) H 05/27/21 18:59 Glucose 117 mg/dl (70-99) H 05/27/21 18:59 Calcium 9.1 mg/dl (8.5-10.1) 05/27/21 18:59 Magnesium 1.9 mg/dl (1.8-2.4) 05/27/21 18:59 Total Bilirubin 1.4 mg/dl (0.2-1) H 05/27/21 18:59 AST 75 U/L (15-37) H 05/27/21 18:59 ALT 48 U/L (12-78) 05/27/21 18:59 Alkaline Phosphatase 220 U/L (45-117) H 05/27/21 18:59 Troponin I < 0.015 ng/ml (0-0.045) 05/27/21 18:59 NT-Pro-B Natriuret Pep 35 pg/ml (0-900) 05/27/21 18:59 Total Protein 7.2 gm/dl (6.4-8.2) 05/27/21 18:59 Albumin 2.6 gm/dl (3.4-5.0) L 05/27/21 18:59 Globulin 4.6 gm/dl (2.5-4.0) H 05/27/21 18:59 Albumin/Globulin Ratio 0.6 (0.9-2) L 05/27/21 18:59 TSH 0.615 uIu/ml (0.300-4.500) 05/27/21 18:59 COVID-19 Eval Order Covid19 at [facility] 05/27/21 18:59 SARS-CoV-2 (PCR) NEGATIVE (Negative) 05/27/21 18:59 Impressions Chest X-Ray 05/27/21 18:23 XR chest 1V portable CLINICAL HISTORY: Shortness of breath. COMPARISON STUDY: Chest radiograph June 25, 2018. FINDINGS: Patient is rotated. Lung volumes are mildly diminished. Cardiomegaly is unchanged. Interstitial thickening is noted. There are bibasilar opacities, greater on the right. No pneumothorax or pleural effusion is noted. IMPRESSION: Interstitial thickening and bibasilar opacities, greater on the right. The findings could reflect an infectious process or pulmonary edema. Radiographic follow to ensure resolution is recommended. ACT 112: Negative or not required by law. Electronically signed by: Tobias Tapia M.D. 05/27/2021 7:46 PM Diagnostic Findings EKG as per my interpretation rate 95, NSR, normal axis, T wave flattening inferior leads
[2021-05-27] MEDS ORDERED: DOXYCYCLINE HYCLATE 100 MG in DEXTROSE 5% 100 ML IV ONE (23:00)
[2021-05-27] MEDS ORDERED: FLUTICASONE HFA 110MCG INHALER INH SCH (23:01)
[2021-05-28] MEDS ORDERED: LEVALBUTEROL 1.25MG/0.5ML NEB INH PRN (00:11)
[2021-05-28] MEDS ORDERED: BENZONATATE 100 MG CAPSULE PO PRN (00:11)
[2021-05-28] MEDS ORDERED: ACETAMINOPHEN 325 MG TAB PO PRN (00:11)
[2021-05-28] MEDS ORDERED: traMADol HCL 50 MG TABLET PO PRN (00:11)
[2021-05-28] MEDS ORDERED: PROMETHAZINE HCL 12.5 MG in SODIUM CHLORIDE 0.9% 50 ML IV PRN (00:11)
[2021-05-28] MEDS ORDERED: IPRATROPIUM BROMIDE NEB SOLN 0.02% 2.5 ML VIAL INH PRN (00:11)
[2021-05-28] MEDS ORDERED: FLUTICASONE PROPIONATE NA SPR 16 GM BTL PRN (00:11)
[2021-05-28] MEDS ORDERED: XOPENEX/ATROVENT 1.25mg/0.5MG NEB COMBO NEB PRN (00:11)
[2021-05-28] MEDS ORDERED: PSYLLIUM 58.6% POWDER PACKET PO PRN (00:28)
[2021-05-28] MEDS ORDERED: LACTATED RINGER'S 1,000 ML IV ONE (00:30)
[2021-05-28] MEDS: PROPRANOLOL HCL 20 MG TAB PO SCH ×3 (02:25→20:35)
[2021-05-28] MEDS: LEVOTHYROXINE SODIUM 112 MCG TABLET PO SCH (05:43)
--- NOTE | 2021-05-28 07:41 | CT Scan Report ---
CT angio chest PE protocol CT DOSE: 246.72 mGy.cm HISTORY: 66 years-old Male with PE, tachy, sob. Acute shortness breath with tachycardia TECHNIQUE: Multiple CTA images of the chest were obtained after the intravenous administration of 121 ml Optiray. Coronal and sagittal MIPS were obtained from the axial data set and were submitted for review. All measurements were obtained according to NASCET criteria. A dose lowering technique was u tilized adhering to the principles of ALARA. COMPARISON: Chest radiograph of same day FINDINGS: CTA: Mild to moderate cardiomegaly. No pericardial effusion. Moderate coronary artery calcifications. No t horacic aortic aneurysm or dissection. Respiratory motion artifact limits evaluation of the pulmonary arterial tree. No filling defects identified to suggest thromboembolic disease. CT CHEST: Surgically absent versus atrophic thyroid. 11 mm right paratracheal lymph node on image 146 series 4 is likely reactive. There are additional prominent lymph nodes adjacent to the distal esophagus with paraesophageal stranding and moderate distal esophageal wall thickening. No pneumothorax, pleural effusion or overt pulmonary edema. Patchy subpleural predominant groundglass and consolidative opacities. Areas of subpleural pulmonary cysts are most pronounced in the basal ri ght lower lobe. Respiratory motion artifact in this evaluation of the lungs. Central airways are chery nt. Cirrhotic liver with trace upper abdominal ascites. Calcified granulomata of the spleen. Mild gynecom astia. No acute fracture. Degenerative changes of the shoulders and spine. IMPRESSION: 1. No pulmonary emboli. 2. Interstitial lung disease with patchy subpleural predominant groundglass and consolidative opaciti es which may reflect atelectasis with alveolitis versus a superimposed infectious process such as vir al pneumonia. 3. Mild likely reactive and paratracheal adenopathy. 4. Cirrhosis with trace upper abdominal ascites. 5. Distal esophageal wall thickening with periesophageal edema, possibly related to esophageal varice s or esophagitis. This could be correlated with endoscopy. This finding was called/faxed to the floor at time of dictation. ACT 112: Negative or not required by law. The above report was generated using voice recognition software. It may contain grammatical, syntax o r spelling errors. Electronically signed by: Jb Degroot M.D. 05/28/2021 7:39 AM
[2021-05-28] MEDS: PANTOprazole 40 MG TAB PO SCH (07:58)
[2021-05-28] MEDS: DOXYCYCLINE HYCLATE 100 MG CAP PO SCH ×2 (07:59→20:37)
[2021-05-28] MEDS: MULTIVITAMIN TAB PO SCH (07:59)
[2021-05-28] MEDS ORDERED: SODIUM CHLORIDE 0.9% 500 ML IV ONE (08:00)
[2021-05-28 08:01] LABS: Basophils # (auto) 0.01 K/uL (0-0.2); Basophils % (auto) 0.2 %; Eosinophils # (auto) 0.16 K/uL (0-0.5); Eosinophils % (auto) 2.8 %; Hematocrit (blood only) 37.7 % (42-52); Hemoglobin 12.7 g/dL (14.0-18.0); Immature Granulocytes # (auto) 0.02 K/uL (0.00-0.02); Immature Granulocytes % (auto) 0.4 %; Lymphocytes # (auto) 1.33 K/uL (1.2-3.4); Lymphocytes % (auto) 23.3 %; Mean Corpuscular Hemoglobin 34.5 pg (25-34); Mean Corpuscular Hgb Conc 33.7 g/dL (32-36); Mean Corpuscular Volume 102.4 fL (80-100); Mean Platelet Volume 9.7 fL (7.4-10.4); Monocytes # (auto) 0.61 K/uL (0.11-0.59); Monocytes % (auto) 10.7 %; Neutrophils # (auto) 3.57 K/uL (1.4-6.5); Neutrophils % (auto) 62.6 %; Platelet Count 120 K/uL (130-400); RDW Coefficient of Variation 15.2 % (11.5-14.5); Red Blood Count 3.68 M/uL (4.7-6.1)
[2021-05-28 08:31] LABS: Creatinine Clr Calc Pharmacy 97.1 ml/min; Est GFR (African American) 111.7 ml/min; Est GFR (Non-African American) 96.4 ml/min; Potassium 4.2 mmol/L (3.5-5.1)
[2021-05-28 09:07] LABS: Adenovirus PCR Not Detected (NotDetected); Bordetella parapertussis PCR Not Detected (NotDetected); Bordetella pertussis PCR Not Detected (NotDetected); Chlamydia pneumoniae PCR Not Detected (NotDetected); Coronavirus 229E PCR Not Detected (NotDetected); Coronavirus CoV-2 (COVID19)PCR Not Detected (NotDetected); Coronavirus HKU1 PCR Not Detected (NotDetected); Coronavirus NL63 PCR Not Detected (NotDetected); Coronavirus OC43PCR Not Detected (NotDetected); Human Metapneumovirus PCR Not Detected (NotDetected); Influenza A PCR Not Detected (NotDetected); Influenza B PCR Not Detected (NotDetected); Mycoplasma pneumoniae PCR Not Detected (NotDetected); Parainfluenza Virus 1 PCR Not Detected (NotDetected); Parainfluenza Virus 2 PCR Not Detected (NotDetected); Parainfluenza Virus 3 PCR Not Detected (NotDetected); Parainfluenza Virus 4 PCR Not Detected (NotDetected); Respiratory Syncytial VirusPCR Not Detected (NotDetected); Rhinovirus/Enterovirus PCR Not Detected (NotDetected)
[2021-05-28] MEDS: cefTRIAXone SODIUM 1,000 MG in DEXTROSE 5% 50 ML IV SCH (09:38)
[2021-05-28 09:46] LABS: Estimated Average Glucose 97 mg/dl
[2021-05-28] MEDS: FLUTICASONE FUROATE 100MCG 14 PUFFS/INHALER INH SCH (11:59)
--- NOTE | 2021-05-28 15:33 | Hospitalist Progress Note ---
Date of Service May 28, 2021 Assessment & Plan (1) Acute hypoxemic respiratory failure: Plan: Acute respiratory failure with hypoxia Community-acquired pneumonia --CTA:No pulmonary emboli. Interstitial lung disease with patchy subpleural predominant groundglass and consolidative opacities which may reflect atelectasis with alveolitis versus a superimposed infectious process such as viral pneumonia. Mild likely reactive and paratracheal adenopathy. -Negative bio fire, Covid screen -Continue Rocephin, doxycycline Continue supplemental oxygen as needed Pulmonary hygiene Nebs PRN Abnormal CT Cirrhosis with trace upper abdominal ascites. Distal esophageal wall thickening with periesophageal edema, possibly related to esophageal varices or esophagitis --H/O cirrhosis, esophageal varices in the past Continue PPI Discussed with cs associate on-call Will consider endoscopy as outpatient H/O PSVT Mild aortic stenosis [place] [facility] [place] Continue home beta-dimitri Hypothyroidism H/O Graves' disease S/P Radioiodine therapy Continue levothyroxine H/O Cryptogenic cirrhosis Hepatocellular carcinoma S/P Chemoembolization and ablation Continue home medications No signs of decompensation currently Hyperglycemia Rule out DM HbA1c pending Anemia of Chronic disease Hb at baseline DVT Px: SCDs Re: H/O variceal bleed Code Status Full code Admission and Anticipated Discharge Date Admission Date: May 27, 2021 Subjective Patient is seen and examined bedside States feeling better today Cough, dyspnea slowly improving Denies any chest pain, dizziness, nausea, abdominal pain Saturating well on 2 L supplemental oxygen Review of Systems Review of Systems: All systems reviewed & are unremarkable except as noted in Subjective Physical Exam Physical Exam: Physical Exam: Vitals signs as noted above General Appearance:Moderately built and nourished, no apparent distress Head: normocephalic, Atraumatic Eyes: normal inspection, EOMI Neck: supple, Trachea midline Respiratory/Chest: Decreased breath sounds, + Basal crackles Cardiovascular: S1, S2, + murmur Abdomen/GI:Soft, Non tender, +Protuberant, Bowel sounds present Extremities/Musculoskeletal:normal inspection, no edema Neurologic/Psych:AAOX3, grossly no focal neurological deficits Skin: normal color, warm Results & Data Results & Data ([facility]) Vital Signs (Past 12 Hours) Vital Signs Temp Pulse Pulse Resp BP Pulse Ox 05/28/21 15:01 66 05/28/21 12:46 36.4 C L 55 L 16 135/74 95 05/28/21 09:44 56 L 05/28/21 08:00 36.7 C 55 L 18 115/71 96 Laboratory Results Short CBC 05/27/21 05/28/21 Range/Units 18:59 07:29 WBC 7.21 5.70 (4.8-10.8) K/uL Hgb 13.8 L 12.7 L (14.0-18.0) g/dL Hct 39.4 L 37.7 L (42-52) % Plt Count 135 120 L (130-400) K/uL BMP 05/27/21 05/28/21 18:59 07:29 Sodium 140 141 Potassium 4.3 4.2 Chloride 110 H 110 H Carbon Dioxide 22 24 BUN 20 H 17 Creatinine 0.87 0.76 Glucose 117 H 88 Calcium 9.1 9.0 Cardiac Enzymes 05/27/21 Range/Units 18:59 Troponin I < 0.015 (0-0.045) ng/ml Liver Function 05/27/21 Range/Units 18:59 Total Bilirubin 1.4 H (0.2-1) mg/dl AST 75 H (15-37) U/L ALT 48 (12-78) U/L Alkaline Phosphatase 220 H (45-117) U/L Albumin 2.6 L (3.4-5.0) gm/dl
--- NOTE | 2021-05-28 21:31 | Communication Note ---
Date of Service: May 28, 2021 Patient not taking Propranolol for months now secondary to fatigue symptoms as per RN. Will DC and remove Rx from patient home med list.
--- NOTE | 2021-05-28 23:09 | Electrocardiogram Report ---
Test Reason : Blood Pressure : / mmHG Vent. Rate : 097 BPM Atrial Rate : 097 BPM P-R Int : 164 ms QRS Dur : 082 ms QT Int : 346 ms P-R-T Axes : 028 024 019 degrees QTc Int : 439 ms Normal sinus rhythm Normal ECG When compared with ECG of 06-MAY-2018 15:42, Premature atrial complexes are no longer Present Vent. rate has increased BY 48 BPM Confirmed by Willie Garcia ([id number]) on 05/28/2021 11:09:43 PM Referred By: REFERRED SELF Confirmed By:Willie Garcia
[2021-05-29 06:34] LABS: Hematocrit (blood only) 40.1 % (42-52); Hemoglobin 13.5 g/dL (14.0-18.0); Mean Corpuscular Hemoglobin 34.6 pg (25-34); Mean Corpuscular Hgb Conc 33.7 g/dL (32-36); Mean Corpuscular Volume 102.8 fL (80-100); Mean Platelet Volume 9.5 fL (7.4-10.4); Platelet Count 121 K/uL (130-400); RDW Coefficient of Variation 15.2 % (11.5-14.5); RDW Standard Deviation 57.3 fL (36.4-46.3); White Blood Count 6.48 K/uL (4.8-10.8)
[2021-05-29] MEDS: LEVOTHYROXINE SODIUM 112 MCG TABLET PO SCH (06:49)
[2021-05-29 07:03] LABS: Albumin Level 2.4 gm/dl (3.4-5.0); BUN Creatinine Ratio 18.2 (10-20); Calcium 9.3 mg/dl (8.5-10.1); Creatinine Clr Calc Pharmacy 95.1 ml/min; Est GFR (African American) 110.6 ml/min; Est GFR (Non-African American) 95.4 ml/min; Magnesium 1.9 mg/dl (1.8-2.4); Potassium 3.9 mmol/L (3.5-5.1)
[2021-05-29 07:06] LABS: Albumin Globulin Ratio 0.5 (0.9-2); Bilirubin,Total 1.8 mg/dl (0.2-1); Globulin 4.5 gm/dl (2.5-4.0); Total Protein 6.9 gm/dl (6.4-8.2)
[2021-05-29] MEDS: FLUTICASONE FUROATE 100MCG 14 PUFFS/INHALER INH SCH (08:15)
[2021-05-29] MEDS: cefTRIAXone SODIUM 1,000 MG in DEXTROSE 5% 50 ML IV SCH (08:15)
[2021-05-29] MEDS: PANTOprazole 40 MG TAB PO SCH (08:15)
[2021-05-29] MEDS: MULTIVITAMIN TAB PO SCH (08:15)
[2021-05-29] MEDS: DOXYCYCLINE HYCLATE 100 MG CAP PO SCH ×2 (08:15→21:29)
--- NOTE | 2021-05-29 16:59 | Hospitalist Progress Note ---
Date of Service May 29, 2021 Assessment & Plan (1) Acute hypoxemic respiratory failure: Plan: Acute respiratory failure with hypoxia Community-acquired pneumonia --CTA:No pulmonary emboli. Interstitial lung disease with patchy subpleural predominant groundglass and consolidative opacities which may reflect atelectasis with alveolitis versus a superimposed infectious process such as viral pneumonia. Mild likely reactive and paratracheal adenopathy. -Negative bio fire, Covid screen -Continue Rocephin, doxycycline Weaned off of supplemental oxygen Blood cultures negative to date Pulmonary hygiene Nebs PRN Consider 2 step prior to discharge Abnormal CT Cirrhosis with trace upper abdominal ascites. Distal esophageal wall thickening with periesophageal edema, possibly related to esophageal varices or esophagitis --H/O cirrhosis, esophageal varices in the past Continue PPI Discussed with cook specialty on-call Will consider endoscopy as outpatient H/O PSVT Mild aortic stenosis [place] [facility] [place] Continue home beta-dimitri Hypothyroidism H/O Graves' disease S/P Radioiodine therapy Continue levothyroxine H/O Cryptogenic cirrhosis Hepatocellular carcinoma S/P Chemoembolization and ablation Continue home medications No signs of decompensation currently Hyperglycemia DM ruled out HbA1c 5.0 Anemia of Chronic disease Hb at baseline DVT Px: SCDs Re: H/O variceal bleed Code Status Full code Admission and Anticipated Discharge Date Admission Date: May 27, 2021 Subjective Patient is seen and examined bedside Continues to improve clinically Saturating well on room air Denies any significant cough, dyspnea Also denies any chest pain, dizziness, nausea, abdominal pain Review of Systems Review of Systems: All systems reviewed & are unremarkable except as noted in Subjective Physical Exam Physical Exam: Physical Exam: Vitals signs as noted above General Appearance:Moderately built and nourished, no apparent distress Head: normocephalic, Atraumatic Eyes: normal inspection, EOMI Neck: supple, Trachea midline Respiratory/Chest: Decreased breath sounds, + Basal crackles Cardiovascular: S1, S2, + murmur Abdomen/GI:Soft, Non tender, +Protuberant, Bowel sounds present Extremities/Musculoskeletal:normal inspection, no edema Neurologic/Psych:AAOX3, grossly no focal neurological deficits Skin: normal color, warm Results & Data Results & Data ([facility]) Vital Signs (Past 12 Hours) Vital Signs Temp Pulse Pulse Resp BP Pulse Ox 05/29/21 16:11 36.7 C 64 20 121/75 94 11/07/21 15:00 63 05/29/21 13:00 36.4 C L 67 18 122/69 91 05/29/21 09:32 56 L 05/29/21 07:00 36.4 C L 55 L 16 122/72 91 Laboratory Results Short CBC 05/29/21 Range/Units 05:59 WBC 6.48 (4.8-10.8) K/uL Hgb 13.5 L (14.0-18.0) g/dL Hct 40.1 L (42-52) % Plt Count 121 L (130-400) K/uL BMP 05/29/21 05:59 Sodium 141 Potassium 3.9 Chloride 110 H Carbon Dioxide 22 BUN 14 Creatinine 0.78 Glucose 82 Calcium 9.3 Liver Function 05/29/21 Range/Units 05:59 Total Bilirubin 1.8 H (0.2-1) mg/dl AST 70 H (15-37) U/L ALT 45 (12-78) U/L Alkaline Phosphatase 161 H (45-117) U/L Albumin 2.4 L (3.4-5.0) gm/dl
[2021-05-30] MEDS: LEVOTHYROXINE SODIUM 112 MCG TABLET PO SCH (06:16)
[2021-05-30 07:58] LABS: Albumin Level 2.6 gm/dl (3.4-5.0); BUN Creatinine Ratio 19.1 (10-20); Calcium 9.3 mg/dl (8.5-10.1); Creatinine Clr Calc Pharmacy 83.9 ml/min; Est GFR (African American) 104.7 ml/min; Est GFR (Non-African American) 90.4 ml/min
[2021-05-30 08:01] LABS: Albumin Globulin Ratio 0.5 (0.9-2); Bilirubin,Total 1.4 mg/dl (0.2-1); Globulin 4.8 gm/dl (2.5-4.0); Total Protein 7.4 gm/dl (6.4-8.2)
[2021-05-30] MEDS: MULTIVITAMIN TAB PO SCH (08:58)
[2021-05-30] MEDS: DOXYCYCLINE HYCLATE 100 MG CAP PO SCH ×2 (08:58→20:02)
[2021-05-30] MEDS: PANTOprazole 40 MG TAB PO SCH (08:58)
[2021-05-30] MEDS: FLUTICASONE FUROATE 100MCG 14 PUFFS/INHALER INH SCH (08:58)
[2021-05-30] MEDS: cefTRIAXone SODIUM 1,000 MG in DEXTROSE 5% 50 ML IV SCH (08:59)
--- NOTE | 2021-05-30 10:25 | XRay Report ---
XR chest 1V portable CLINICAL HISTORY: Pneumonia. COMPARISON STUDY: Chest radiograph and chest CT May 27, 2021. FINDINGS: There is no pneumothorax or pleural effusion. Cardiomediastinal silhouette is stable. Inter stitial thickening and bilateral opacities are noted. Right upper lung opacity has slightly increased . IMPRESSION: Slight increase in suspected infectious process superimposed upon interstitial lung dise ase. ACT 112: Negative or not required by law. Electronically signed by: Tobias Tapia M.D. 05/30/2021 10:24 AM
--- NOTE | 2021-05-30 17:27 | Hospitalist Progress Note ---
Date of Service May 30, 2021 Assessment & Plan (1) Acute hypoxemic respiratory failure: Plan: Acute respiratory failure with hypoxia Community-acquired pneumonia --CTA:No pulmonary emboli. Interstitial lung disease with patchy subpleural predominant groundglass and consolidative opacities which may reflect atelectasis with alveolitis versus a superimposed infectious process such as viral pneumonia. Mild likely reactive and paratracheal adenopathy. -Negative bio fire, Covid screen -Continue Rocephin, doxycycline Blood cultures negative to date Pulmonary hygiene Nebs PRN Plan to get 2 step prior to discharge Chest x-ray today showed slight worsening of pneumonia Currently saturating low 90s on room air Check procalcitonin tomorrow Abnormal CT Cirrhosis with trace upper abdominal ascites. Distal esophageal wall thickening with periesophageal edema, possibly related to esophageal varices or esophagitis --H/O cirrhosis, esophageal varices in the past Continue PPI Discussed with manager personnel selection on-call Will consider endoscopy as outpatient H/O PSVT Mild aortic stenosis [place] [facility] [place] Continue home beta-dimitri Hypothyroidism H/O Graves' disease S/P Radioiodine therapy Continue levothyroxine H/O Cryptogenic cirrhosis Hepatocellular carcinoma S/P Chemoembolization and ablation Continue home medications No signs of decompensation currently Hyperglycemia DM ruled out HbA1c 5.0 Anemia of Chronic disease Hb at baseline DVT Px: SCDs Re: H/O variceal bleed Code Status Full code Admission and Anticipated Discharge Date Admission Date: May 27, 2021 Subjective Patient is seen and examined bedside Subjectively feels well Chest x-ray today showed slight worsening of pneumonia cough continues to improve Denies any chest pain, dyspnea, dizziness, nausea, abdominal pain Review of Systems Review of Systems: All systems reviewed & are unremarkable except as noted in Subjective Physical Exam Physical Exam: Physical Exam: Vitals signs as noted above General Appearance:Moderately built and nourished, no apparent distress Head: normocephalic, Atraumatic Eyes: normal inspection, EOMI Neck: supple, Trachea midline Respiratory/Chest: Decreased breath sounds, CTA Cardiovascular: S1, S2, + murmur Abdomen/GI:Soft, Non tender, +Protuberant, Bowel sounds present Extremities/Musculoskeletal:normal inspection, no edema Neurologic/Psych:AAOX3, grossly no focal neurological deficits Skin: normal color, warm Results & Data Results & Data ([facility]) Vital Signs (Past 12 Hours) Vital Signs Temp Pulse Pulse Pulse Pulse Pulse Pulse 05/30/21 16:28 36.5 C 70 05/30/21 15:19 78 05/30/21 09:21 78 80 80 72 05/30/21 08:20 36.3 C L 71 05/30/21 07:50 66 Resp Resp Resp Resp Resp BP Pulse Ox 05/30/21 16:28 18 137/77 92 05/30/21 15:19 05/30/21 09:21 18 16 16 16 05/30/21 08:20 18 125/72 91 05/30/21 07:50 Pulse Ox Pulse Ox Pulse Ox Pulse Ox 05/30/21 16:28 05/30/21 15:19 05/30/21 09:21 90 87 L 90 94 05/30/21 08:20 05/30/21 07:50 Laboratory Results BMP 05/30/21 07:05 Sodium 139 Potassium 4.0 Chloride 105 Carbon Dioxide 26 BUN 17 Creatinine 0.89 Glucose 90 Calcium 9.3 Liver Function 05/30/21 Range/Units 07:05 Total Bilirubin 1.4 H (0.2-1) mg/dl AST 78 H (15-37) U/L ALT 48 (12-78) U/L Alkaline Phosphatase 177 H (45-117) U/L Albumin 2.6 L (3.4-5.0) gm/dl
[2021-05-31] MEDS: LEVOTHYROXINE SODIUM 112 MCG TABLET PO SCH (05:47)
[2021-05-31] MEDS: cefTRIAXone SODIUM 1,000 MG in DEXTROSE 5% 50 ML IV SCH (07:46)
[2021-05-31] MEDS: PANTOprazole 40 MG TAB PO SCH (07:50)
[2021-05-31] MEDS: FLUTICASONE FUROATE 100MCG 14 PUFFS/INHALER INH SCH (07:50)
[2021-05-31] MEDS: DOXYCYCLINE HYCLATE 100 MG CAP PO SCH (07:50)
[2021-05-31] MEDS: MULTIVITAMIN TAB PO SCH (07:50)
--- NOTE | 2021-05-31 11:35 | Hospitalist Progress Note ---
Date of Service May 31, 2021 Assessment & Plan (1) Acute hypoxemic respiratory failure: Plan: Acute respiratory failure with hypoxia Community-acquired pneumonia --CTA:No pulmonary emboli. Interstitial lung disease with patchy subpleural predominant groundglass and consolidative opacities which may reflect atelectasis with alveolitis versus a superimposed infectious process such as viral pneumonia. Mild likely reactive and paratracheal adenopathy. -Negative bio fire, Covid screen -Continue Rocephin, doxycycline Blood cultures negative for 48 hrs Pulmonary hygiene Nebs PRN 2 step: Needs 1 Liter Oxygen with Activity Procalcitonin negative Plan to transition to p.o. antibiotics upon discharge Abnormal CT Cirrhosis with trace upper abdominal ascites. Distal esophageal wall thickening with periesophageal edema, possibly related to esophageal varices or esophagitis --H/O cirrhosis, esophageal varices in the past Continue PPI Discussed with supervisor endless track vehicle on-call Will consider endoscopy as outpatient H/O PSVT Mild aortic stenosis Follows with [facility] Continue home beta-dimitri Hypothyroidism H/O Graves' disease S/P Radioiodine therapy Continue levothyroxine H/O Cryptogenic cirrhosis Hepatocellular carcinoma S/P Chemoembolization and ablation Continue home medications No signs of decompensation currently Hyperglycemia DM ruled out HbA1c 5.0 Anemia of Chronic disease Hb at baseline DVT Px: SCDs Re: H/O variceal bleed Code Status Full code Admission and Anticipated Discharge Date Admission Date: May 27, 2021 Subjective Patient is seen and examined bedside Doing well today No new complaints Afebrile Very minimal cough Denies any chest pain, dyspnea, dizziness, nausea, abdominal pain Review of Systems Review of Systems: All systems reviewed & are unremarkable except as noted in Subjective Physical Exam Physical Exam: Physical Exam: Vitals signs as noted above General Appearance:Moderately built and nourished, no apparent distress Head: normocephalic, Atraumatic Eyes: normal inspection, EOMI Neck: supple, Trachea midline Respiratory/Chest: Decreased breath sounds, CTA Cardiovascular: S1, S2, + murmur Abdomen/GI:Soft, Non tender, +Protuberant, Bowel sounds present Extremities/Musculoskeletal:normal inspection, no edema Neurologic/Psych:AAOX3, grossly no focal neurological deficits Skin: normal color, warm Results & Data Results & Data ([facility]) Vital Signs (Past 12 Hours) Vital Signs Temp Pulse Resp BP BP Pulse Ox 05/31/21 08:05 36.6 C 75 18 131/76 90 05/31/21 04:00 37.0 C 81 18 114/72 90
--- NOTE | 2021-05-31 11:45 | Discharge Summary ---
Date of Service May 31, 2021 Admission HPI Per Admitting Provider History obtained from patient and records. Medical history significant for PSVT, mild aortic stenosis, hypothyroidism, cryptogenic cirrhosis, hepatocellular carcinoma status post chemoembolization and ablation, history of variceal bleed, chronic anemia (baseline hemoglobin 13) Last confinement 2017 for UGI B secondary to esophageal varices. Patient noted increased sinus congestion the last few days. Cough symptoms later productive of yellow sputum without chest pain. Increasing shortness of breath especially on exertion. No fluid retention. No fever, no chills. No known recent COVID-19 contacts. Patient completed COVID-19 vaccination. O2 sats 80s at home. At the ER, patient received Cefepime and neb treatment. Patient currently feeling much better. Medical History as above Surgical History : Hip fracture surgery Family History : DM, skin cancer, heart disease Personal/Social history : Non-smoker, no EtOH intake, retired restaurant employee Admission Exam Per Admitting Provider Physical Exam Physical Exam: GENERAL: Comfortable, pleasant, mild hearing impairment, no respiratory distress SKIN: Pallor,, warm HEENT: Bespectacled, pale palpebral conjunctivae, no ptosis, dry buccal mucosa, nasal cannula in place NECK : Supple, no tenderness CHEST : Decreased breath sounds, no tenderness HEART : RRR, systolic murmur best heard over sternal border ABDOMEN: Some distention, nontender EXTREMITIES : No LE swelling/tenderness, no other conspicuous deformities noted NEUROLOGIC : Coherent, no facial asymmetry, mild hearing impairment, no other gross focality Principal Diagnosis Acute respiratory failure with hypoxia Community-acquired pneumonia Periesophageal edema Discharge Data Allergies Allergy/AdvReac Type Severity Reaction Status Date / Time Sulfa (Sulfonamide Allergy Intermediate Hives Unverified 05/27/21 18:22 Antibiotics) No Known Drug Allergies Allergy Verified 06/14/20 10:06 Consultations 05/27/21 21:44 ED Decision to Admit Stat Ordered Studies 05/27/21 18:22 CT angio chest PE protocol Urgent Hospital Course (1) Acute hypoxemic respiratory failure: Acute respiratory failure with hypoxia Community-acquired pneumonia --CTA:No pulmonary emboli. Interstitial lung disease with patchy subpleural predominant groundglass and consolidative opacities which may reflect atelectasis with alveolitis versus a superimposed infectious process such as viral pneumonia. Mild likely reactive and paratracheal adenopathy. -Negative bio fire, Covid screen -Continue Rocephin, doxycycline Blood cultures negative for 48 hrs Pulmonary hygiene Nebs PRN 2 step: Needs 1 Liter Oxygen with Activity Procalcitonin negative Plan to transition to p.o. antibiotics upon discharge Abnormal CT Cirrhosis with trace upper abdominal ascites. Distal esophageal wall thickening with periesophageal edema, possibly related to esophageal varices or esophagitis --H/O cirrhosis, esophageal varices in the past Continue PPI Discussed with front end engineer on-call Will consider endoscopy as outpatient H/O PSVT Mild aortic stenosis Follows with [facility] Continue home beta-dimitri Hypothyroidism H/O Graves' disease S/P Radioiodine therapy Continue levothyroxine H/O Cryptogenic cirrhosis Hepatocellular carcinoma S/P Chemoembolization and ablation Continue home medications No signs of decompensation currently Hyperglycemia DM ruled out HbA1c 5.0 Anemia of Chronic disease Hb at baseline DVT Px: SCDs Re: H/O variceal bleed Code Status Full code Total Time Total Time Spent Total Time Spent (In Minutes): 41 minutes Discharge Plan Discharge Items Patient Disposition: Home - Self-Care Reason For Visit: RESP FAILURE Discharge Diagnosis: Acute respiratory failure with hypoxia Community-acquired pneumonia Periesophageal edema Condition on Discharge: Fair Activity: Per Instructions section Exercise/Sports: Wait until after follow-up appointment Non-emergency contact: Primary Care Provider Call non-emergency contact if: you have any medication questions, your symptoms worsen, your pain is concerning for you and you have a fever Follow-up/Referrals: Fransico Jackson CRNP [Nurse Practitioner] - (Date & Time 06/01/2021 10:00 AM Provider AYO Isabel Department Gastroenterology, [facility] ) Suresh Mathis MD [Primary Care Provider] - (Date & Time 06/06/2021 11:00 AM Provider Suresh Mathis MD Department Family Practice [facility] ) Diet: Heart Healthy Addtl Attending Provider Instructions: Follow-up with your primary care physician Dr. Mathis on 06/06/2021 11:00 AM Follow-up with your front end engineer AYO Gonzalez on 06/01/2021 10:00 AM ---Use oxygen via nasal cannula 1 L with activity as advised. ---Complete the antibiotic course as prescribed. ---Your final blood cultures are pending at the time of discharge. Follow-up with your physician for results. Seek immediate medical attention if your symptoms reoccur or worsen Please take all medications as instructed on discharge list below. Please call if you have any questions or problems. You can reach a [facility] hospitalist on duty at [facility] 24 hours a day by calling [phone] Pending Studies at Discharge: Yes Studies:: Blood Cultures Stand-Alone Forms: My [facility], Smoking Cessation Medications and DC Order Prescriptions: New doxycycline hyclate 100 mg Capsule 100 mg PO BID Qty: 7 RF: 0 cefdinir 300 mg capsule 300 mg PO BID Qty: 7 RF: 0 Continued levothyroxine 112 mcg tablet 112 mcg PO QAM Qty: 90 RF: 0 fluticasone propionate 50 mcg/actuation spray,suspension 2 sprays intranasal DAILY PRN (Reason: Congestion) Qty: 1 RF: 0 psyllium husk 3.4 gram/5.4 gram powder 1 tbs PO DAILY PRN (Reason: Constipation) Qty: 60 RF: 0 polyethylene glycol 3350 17 gram/dose powder 17 gm PO DAILY PRN (Reason: Constipation) Qty: 1 RF: 0 Centrum Silver Men 300-600-300 mcg Tablet 1 tab PO DAILY RF: 0 pantoprazole 40 mg Tablet,Delayed Release (Dr/Ec) 40 mg PO QAM RF: 0 benzonatate 100 mg capsule 100 mg PO TID PRN (Reason: Cough) RF: 0 Flovent HFA 110 mcg/actuation HFA aerosol inhaler 1 puff INHALATION BID RF: 0 Discharge Orders: Discharge Order (Routine); Ordered 05/31/21 Ordered By: Moe Cardenas Admission Data Admit Date/Time: 05/27/21 23:01 Attending Provider: Moe Cardenas Admit Provider: Gomez Kuhn Primary Care Provider: Suresh Mathis Other Providers: Gomez Kuhn
== END 2021-05-31 13:58 | disposition home or self-care (01) | DRG 193 ==
LOC: ED 17:17 → SUATTDRO 23:01 → 2W 23:01

== ENCOUNTER 2021-08-30 16:46 | Inpatient (IN) ==
--- NOTE | 2021-08-30 17:21 | XRay Report ---
XR chest 1V portable CLINICAL HISTORY: SOB TECHNIQUE: Single frontal radiograph of the chest was obtained. Comparison: Comparison is made to chest one view 05/30/2021 FINDINGS: No lines and tubes are seen. The cardiomediastinal silhouette is normal. Lungs are underinflated. Int erstitial coarsening is again seen. No airspace disease is seen. No evidence of pleural effusion or p neumothorax. IMPRESSION: Interstitial coarsening without evidence of airspace opacity to suggest pneumonia. ACT 112: Negative or not required by law. Electronically signed by: Sree Johnson M.D. 08/30/2021 5:20 PM
[2021-08-30 18:15] LABS: Basophils # (auto) 0.02 K/uL (0-0.2); Basophils % (auto) 0.3 %; Eosinophils # (auto) 0.31 K/uL (0-0.5); Eosinophils % (auto) 4.1 %; Hematocrit (blood only) 41.9 % (42-52); Hemoglobin 14.6 g/dL (14.0-18.0); Immature Granulocytes # (auto) 0.02 K/uL (0.00-0.02); Immature Granulocytes % (auto) 0.3 %; Lymphocytes # (auto) 1.78 K/uL (1.2-3.4); Lymphocytes % (auto) 23.4 %; Mean Corpuscular Hemoglobin 36.6 pg (25-34); Mean Corpuscular Hgb Conc 34.8 g/dL (32-36); Mean Platelet Volume 9.5 fL (7.4-10.4); Monocytes # (auto) 0.83 K/uL (0.11-0.59); Monocytes % (auto) 10.9 %; Neutrophils # (auto) 4.65 K/uL (1.4-6.5); Platelet Count 131 K/uL (130-400); RDW Coefficient of Variation 16.6 % (11.5-14.5); RDW Standard Deviation 63.7 fL (36.4-46.3); Red Blood Count 3.99 M/uL (4.7-6.1); White Blood Count 7.61 K/uL (4.8-10.8)
--- NOTE | 2021-08-30 18:18 | Emergency Department Note ---
Impression & Plan Hypoxia, Abdominal ascites, Elevated bilirubin, D-dimer, elevated ED Provider Note NAME: TODD GUSTAFSON AGE: 66 SEX: M : 1955 ARRIVES VIA: Walk-In INFORMANT: Patient ED PROVIDER(S): Philipp Edwards DO CHIEF COMPLAINT: Shortness of breath HPI: Patient is a 66-year-old male who presents to the ER for above-stated complaint. He was discharged home around May 31 with pneumonia and oxygen. He remained on oxygen for about 10 to 14 days and this was discontinued. Since then he notes he is doing well but intermittently which checks his pulse ox it was low in the 80s. His daughter checked it today and it was in the mid 80s. He notes progressive worsening of the shortness of breath. No chest pain. No belly pain, nausea, vomiting or diarrhea. No dysuria, urgency, or frequency. No other exacerbating or remitting factors. ROS: See above HPI for pertinent positives & negatives. A total of 10 systems reviewed and were otherwise negative. PAST MEDICAL HISTORY:See Below PAST SURGICAL HISTORY:See Below FAMILY HISTORY:See Below SOCIAL HISTORY:See Below HOME MEDICATIONS:See Below ALLERGIES:See Below VITALS:See Below PHYSICAL EXAMINATION: GENERAL: Sitting up in bed, alert, well appearing, well nourished, no distress, non-toxic, on nasal cannula EYE EXAM: normal conjunctiva. OROPHARYNX: no exudate, no erythema, lips, buccal mucosa, and tongue normal and mucous membranes are moist NECK: supple, no nuchal rigidity, no adenopathy, non-tender LUNGS: Clear to auscultation. Normal chest wall mechanics HEART: no murmurs, S1 normal and S2 normal ABDOMEN: abdomen soft, non-tender, normo-active bowel sounds, no masses, no rebound or guarding. UPPER EXTREMITIES: upper extremities are grossly normal. LOWER EXTREMITIES: No pitting edema. NEURO EXAM: Normal sensorium, cranial nerves II-XII grossly intact, normal speech, no gross weakness of arms, no gross weakness of legs. MEDICAL DECISION MAKING: Patient is a 66-year-old male who presents the ER for shortness of breath. IV was established blood work was obtained. Labs show no significant leukocytosis or anemia. INR was unremarkable. D-dimer was 6000. BMP was unremarkable. T bili slightly up at 2.9 up from previous. AST elevated as well. ALT was norm al. Troponin was negative. Covid was negative. Chest x-ray was clean. CT angio of the chest shows atelectasis and no PEs per the read with ascites. Patient remained on nasal cannula due to his hypoxia. He was updated bedside discussed with hospitalist admitted for further work-up. Triage Nursing notes reviewed. Limited review of prior medical records performed Vital Signs: reviewed and remarkable for hypoxia Differential diagnosis: Differential diagnoses includes but is not limited to pneumonia, bronchitis, COPD/Asthma exacerbation, pneumothorax, pulmonary embolism, congestive heart failure, acute coronary syndrome ER treatment provided: See below Diagnostics interpreted by me: ECG: Sinus rhythm rate of 63 Left axis No PVCs QTC 452 Cardiac Monitoring: An order was placed for continuous cardiac monitoring. The monitor shows a rate of 70 with sinus rhythm. Laboratory studies: As stated above and show below. Imaging studies: CT angio of the chest as discussed above Consultation(s): Discussed with hospitalist for further evaluation Procedures: none Critical Care: I have personally spent 31 minutes of critical care time in the direct management of this patient. This includes bedside care, interpretation of diagnostic studies, and testing, discussion with consultants, patient, and family members, and other required patient management activities. This 31 minutes is in excess of all separately billable procedures. Past Med/Surg History Medical History Anemia BPH (benign prostatic hyperplasia) Cirrhosis Closed left femoral fracture april 2018 Elevated liver enzymes Esophageal varices BANDING 09/2018 GERD (gastroesophageal reflux disease) H/O Graves' disease Hemorrhoids History of pneumonia HOSPITALIZED AT [facility] 05/2021 Hypothyroidism SVT (supraventricular tachycardia) FOLLOWS Ruma/ DR. QUISPE Surgical History History of colonoscopy History of esophagogastroduodenoscopy (EGD) History of open reduction and internal fixation (ORIF) procedure LEFT FEMUR Family History Brother Family history of diabetes mellitus Other Family history non-contributory High cholesterol Myocardial infarction No family history of adverse response to anesthesia Social History Smoking Status: Never smoker Second Hand Exposure: No; Hx Alcohol Use: No Preferred Language: Moldovan Communication Ability: Effective Visual Impairment: Limited Hearing Ability: Normal Clearance Diver Required: No Beliefs That Will Affect Care: None marital status: Current Living Situation: Spouse Feels Safe at Home: Yes Assistive Devices: Glasses Allergies Allergies Allergy/AdvReac Type Severity Reaction Status Date / Time Sulfa (Sulfonamide Allergy Intermediate Hives Verified 08/30/21 19:32 Antibiotics) Home Meds Home Medications Medication Instructions Recorded Confirmed mqcogkcz-dti-vlgpp acid 300 1 tab PO DAILY 06/24/18 08/30/21 mcg-lycopene 600 mcg-lutein 300 mcg tablet (Centrum Silver Men) pantoprazole 40 mg tablet,delayed 40 mg PO QAM 10/08/18 08/30/21 release polyethylene glycol 3350 17 17 gm PO DAILY PRN #1 gm 04/21/19 08/30/21 gram/dose oral powder psyllium husk 3.4 gram/5.4 gram 1 tbs PO DAILY PRN #60 gm 04/21/19 08/30/21 oral powder benzonatate 100 mg capsule 100 mg PO TID PRN 05/27/21 08/30/21 fluticasone propionate 110 1 puff INHALATION UD PRN 05/27/21 08/30/21 mcg/actuation HFA aerosol inhaler (Flovent HFA) propranolol 60 mg tablet 60 mg PO BID 08/11/21 08/30/21 Previous Rx's Medication Instructions Recorded levothyroxine 112 mcg tablet 112 mcg PO QAM #90 tab 07/31/19 Results & Data (ED) Vital Signs Vital Signs - 24 hr 08/30/21 17:00 08/30/21 17:04 08/30/21 23:15 Temperature 36.4 C L Temperature Source Temporal Artery Scan Pulse Rate 64 55 L Pulse Rate [Apical] 55 L Pulse Rhythm Regular Pulse Strength Normal Respiratory Rate 20 16 Respiratory Effort / Characteristics Non-Labored Spontaneous Non-Labored Respiratory Depth Normal Respiratory Pattern Regular Blood Pressure 158/89 H Blood Pressure [Right Arm] 117/64 Blood Pressure Mean 112 Blood Pressure Mean [Right Arm] 81 Blood Pressure Position Sitting Pulse Oximetry 88 L 88 L 97 Oxygen Delivery Method Room Air Room Air Nasal Cannula Oxygen Flow Rate 2 Sepsis Recent Fever Within 48 Hours No Sepsis New/Unexplained Change in Mental Status N/A Sepsis Action Taken by Nursing No Action Required Laboratory Data Result diagrams: 08/30/21 18:00 08/30/21 18:00 Lab Results 08/30/21 08/30/21 08/30/21 Range/Units 18:00 18:00 18:00 WBC 7.61 (4.8-10.8) K/uL RBC 3.99 L (4.7-6.1) M/uL Hgb 14.6 (14.0-18.0) g/dL Hct 41.9 L (42-52) % MCV 105.0 H (80-100) fL MCH 36.6 H (25-34) pg MCHC 34.8 (32-36) g/dL RDW Std Deviation 63.7 H (36.4-46.3) fL RDW Coeff of Ivda 16.6 H (11.5-14.5) % Plt Count 131 (130-400) K/uL MPV 9.5 (7.4-10.4) fL Immature Gran % (Auto) 0.3 % Neut % (Auto) 61.0 % Lymph % (Auto) 23.4 % Tyrrell % (Auto) 10.9 % Eos % (Auto) 4.1 % Baso % (Auto) 0.3 % Neut # (Auto) 4.65 (1.4-6.5) K/uL Lymph # (Auto) 1.78 (1.2-3.4) K/uL Tyrrell # (Auto) 0.83 H (0.11-0.59) K/uL Eos # (Auto) 0.31 (0-0.5) K/uL Baso # (Auto) 0.02 (0-0.2) K/uL Immature Gran # (Auto) 0.02 (0.00-0.02) K/uL PT 12.3 H (9.0-12.0) Seconds INR 1.2 H (0.9-1.1) APTT 31.4 H (21.0-31.0) Seconds PTT Ratio 1.2 D-Dimer (0-500) ug/L FEU Sodium 136 (136-145) mmol/L Potassium 4.3 (3.5-5.1) mmol/L Chloride 103 (98-107) mmol/L Carbon Dioxide 26 (21-32) mmol/L Anion Gap 7 (3-11) BUN 20 (6-23) mg/dl Creatinine 0.79 (0.6-1.4) mg/dl Est Cr Clr Drug Dosing 93.4 ml/min Est GFR ( Amer) 110.0 ml/min Est GFR (Non-Af Amer) 94.9 ml/min BUN/Creatinine Ratio 25.3 H (10-20) Glucose 79 (70-99(Fasting)) mg/dl Calcium 9.0 (8.5-10.1) mg/dl Magnesium 1.8 (1.7-2.4) mg/dl Total Bilirubin 2.9 H (0.2-1.0) mg/dl AST 86 H (13-39) U/L ALT 37 (7-52) U/L Alkaline Phosphatase 189 H (34-104) U/L Troponin I 0.03 (0-0.04) ng/ml Total Protein 7.2 (6.0-8.3) gm/dl Albumin 3.1 L (3.4-5.0) gm/dl Globulin 4.1 H (2.5-4.0) gm/dl Albumin/Globulin Ratio 0.8 L (0.9-2) Adenovirus (PCR) (NotDetected) B. pertussis DNA (PCR) (NotDetected) B.parapertussis DNA PCR (NotDetected) C. pneumoniae DNA (PCR) (NotDetected) Coronavirus OC43 (PCR) (NotDetected) Coronavirus HKU1 (PCR) (NotDetected) Coronavirus 229E (PCR) (NotDetected) SARS-CoV-2 (PCR) (NotDetected) Coronavirus NL63 (PCR) (NotDetected) Human Metapneumovir PCR (NotDetected) Influenza Type A (PCR) (NotDetected) Influ A Molecular Assay (Negative) Influenza Type B (PCR) (NotDetected) Influ B Molecular Assay (Negative) M. pneumoniae (PCR) (NotDetected) Parainfluenza 1 (PCR) (NotDetected) Parainfluenza 2 (PCR) (NotDetected) Parainfluenza 3 (PCR) (NotDetected) Parainfluenza 4 (PCR) (NotDetected) RSV (PCR) (NotDetected) Entero/Rhino (PCR) (NotDetected) SARS-CoV-2, RNA, NAAT (NEGATIVE) 08/30/21 08/30/21 08/30/21 Range/Units 18:00 18:05 18:05 WBC (4.8-10.8) K/uL RBC (4.7-6.1) M/uL Hgb (14.0-18.0) g/dL Hct (42-52) % MCV (80-100) fL MCH (25-34) pg MCHC (32-36) g/dL RDW Std Deviation (36.4-46.3) fL RDW Coeff of Vida (11.5-14.5) % Plt Count (130-400) K/uL MPV (7.4-10.4) fL Immature Gran % (Auto) % Neut % (Auto) % Lymph % (Auto) % Tyrrell % (Auto) % Eos % (Auto) % Baso % (Auto) % Neut # (Auto) (1.4-6.5) K/uL Lymph # (Auto) (1.2-3.4) K/uL Tyrrell # (Auto) (0.11-0.59) K/uL Eos # (Auto) (0-0.5) K/uL Baso # (Auto) (0-0.2) K/uL Immature Gran # (Auto) (0.00-0.02) K/uL PT (9.0-12.0) Seconds INR (0.9-1.1) APTT (21.0-31.0) Seconds PTT Ratio D-Dimer 6490 H* (0-500) ug/L FEU Sodium (136-145) mmol/L Potassium (3.5-5.1) mmol/L Chloride (98-107) mmol/L Carbon Dioxide (21-32) mmol/L Anion Gap (3-11) BUN (6-23) mg/dl Creatinine (0.6-1.4) mg/dl Est Cr Clr Drug Dosing ml/min Est GFR ( Amer) ml/min Est GFR (Non-Af Amer) ml/min BUN/Creatinine Ratio (10-20) Glucose (70-99(Fasting)) mg/dl Calcium (8.5-10.1) mg/dl Magnesium (1.7-2.4) mg/dl Total Bilirubin (0.2-1.0) mg/dl AST (13-39) U/L ALT (7-52) U/L Alkaline Phosphatase (34-104) U/L Troponin I (0-0.04) ng/ml Total Protein (6.0-8.3) gm/dl Albumin (3.4-5.0) gm/dl Globulin (2.5-4.0) gm/dl Albumin/Globulin Ratio (0.9-2) Adenovirus (PCR) (NotDetected) B. pertussis DNA (PCR) (NotDetected) B.parapertussis DNA PCR (NotDetected) C. pneumoniae DNA (PCR) (NotDetected) Coronavirus OC43 (PCR) (NotDetected) Coronavirus HKU1 (PCR) (NotDetected) Coronavirus 229E (PCR) (NotDetected) SARS-CoV-2 (PCR) (NotDetected) Coronavirus NL63 (PCR) (NotDetected) Human Metapneumovir PCR (NotDetected) Influenza Type A (PCR) (NotDetected) Influ A Molecular Assay Negative (Negative) Influenza Type B (PCR) (NotDetected) Influ B Molecular Assay Negative (Negative) M. pneumoniae (PCR) (NotDetected) Parainfluenza 1 (PCR) (NotDetected) Parainfluenza 2 (PCR) (NotDetected) Parainfluenza 3 (PCR) (NotDetected) Parainfluenza 4 (PCR) (NotDetected) RSV (PCR) (NotDetected) Entero/Rhino (PCR) (NotDetected) SARS-CoV-2, RNA, NAAT NEGATIVE (NEGATIVE) 08/30/21 Range/Units Unknown WBC (4.8-10.8) K/uL RBC (4.7-6.1) M/uL Hgb (14.0-18.0) g/dL Hct (42-52) % MCV (80-100) fL MCH (25-34) pg MCHC (32-36) g/dL RDW Std Deviation (36.4-46.3) fL RDW Coeff of Vida (11.5-14.5) % Plt Count (130-400) K/uL MPV (7.4-10.4) fL Immature Gran % (Auto) % Neut % (Auto) % Lymph % (Auto) % Tyrrell % (Auto) % Eos % (Auto) % Baso % (Auto) % Neut # (Auto) (1.4-6.5) K/uL Lymph # (Auto) (1.2-3.4) K/uL Tyrrell # (Auto) (0.11-0.59) K/uL Eos # (Auto) (0-0.5) K/uL Baso # (Auto) (0-0.2) K/uL Immature Gran # (Auto) (0.00-0.02) K/uL PT (9.0-12.0) Seconds INR (0.9-1.1) APTT (21.0-31.0) Seconds PTT Ratio D-Dimer (0-500) ug/L FEU Sodium (136-145) mmol/L Potassium (3.5-5.1) mmol/L Chloride (98-107) mmol/L Carbon Dioxide (21-32) mmol/L Anion Gap (3-11) BUN (6-23) mg/dl Creatinine (0.6-1.4) mg/dl Est Cr Clr Drug Dosing ml/min Est GFR ( Amer) ml/min Est GFR (Non-Af Amer) ml/min BUN/Creatinine Ratio (10-20) Glucose (70-99(Fasting)) mg/dl Calcium (8.5-10.1) mg/dl Magnesium (1.7-2.4) mg/dl Total Bilirubin (0.2-1.0) mg/dl AST (13-39) U/L ALT (7-52) U/L Alkaline Phosphatase (34-104) U/L Troponin I (0-0.04) ng/ml Total Protein (6.0-8.3) gm/dl Albumin (3.4-5.0) gm/dl Globulin (2.5-4.0) gm/dl Albumin/Globulin Ratio (0.9-2) Adenovirus (PCR) Not Detected (NotDetected) B. pertussis DNA (PCR) Not Detected (NotDetected) B.parapertussis DNA PCR Not Detected (NotDetected) C. pneumoniae DNA (PCR) Not Detected (NotDetected) Coronavirus OC43 (PCR) Not Detected (NotDetected) Coronavirus HKU1 (PCR) Not Detected (NotDetected) Coronavirus 229E (PCR) Not Detected (NotDetected) SARS-CoV-2 (PCR) Not Detected (NotDetected) Coronavirus NL63 (PCR) Not Detected (NotDetected) Human Metapneumovir PCR Not Detected (NotDetected) Influenza Type A (PCR) Not Detected (NotDetected) Influ A Molecular Assay (Negative) Influenza Type B (PCR) Not Detected (NotDetected) Influ B Molecular Assay (Negative) M. pneumoniae (PCR) Not Detected (NotDetected) Parainfluenza 1 (PCR) Not Detected (NotDetected) Parainfluenza 2 (PCR) Not Detected (NotDetected) Parainfluenza 3 (PCR) Not Detected (NotDetected) Parainfluenza 4 (PCR) Not Detected (NotDetected) RSV (PCR) Not Detected (NotDetected) Entero/Rhino (PCR) Not Detected (NotDetected) SARS-CoV-2, RNA, NAAT (NEGATIVE) Administered Medications Discontinued Medications Ioversol (Optiray 320 125ml) 121 ml IV ONCE ONE Stop: 08/30/21 21:20 Last Admin: 08/30/21 21:21 Dose: 121 ml Documented by: [id number] Imaging Data Radiologist's Impression: Chest X-Ray 08/30/21 17:04 XR chest 1V portable CLINICAL HISTORY: SOB TECHNIQUE: Single frontal radiograph of the chest was obtained. Comparison: Comparison is made to chest one view 05/30/2021 FINDINGS: No lines and tubes are seen. The cardiomediastinal silhouette is normal. Lungs are underinflated. Interstitial coarsening is again seen. No airspace disease is seen. No evidence of pleural effusion or pneumothorax. IMPRESSION: Interstitial coarsening without evidence of airspace opacity to suggest pneumonia. ACT 112: Negative or not required by law. Electronically signed by: Sree Johnson M.D. 08/30/2021 5:20 PM Discharge Plan Visit Data Chief Complaint: Shortness of Breath/Dyspnea Stated Complaint: SOB, COUGH, HYPOXIA, REF BY ED Provider: Philipp Edwards Discharge Problem: Hypoxia, Abdominal ascites, Elevated bilirubin, D-dimer, elevated Forms Stand Alone Forms: My [facility] Getting-in Prescriptions Prescriptions: No Action levothyroxine 112 mcg tablet 112 mcg PO QAM Qty: 90 RF: 0 psyllium husk 3.4 gram/5.4 gram powder 1 tbs PO DAILY PRN (Reason: Constipation) Qty: 60 RF: 0 polyethylene glycol 3350 17 gram/dose powder 17 gm PO DAILY PRN (Reason: Constipation) Qty: 1 RF: 0 Centrum Silver Men 300-600-300 mcg Tablet 1 tab PO DAILY RF: 0 pantoprazole 40 mg Tablet,Delayed Release (Dr/Ec) 40 mg PO QAM RF: 0 benzonatate 100 mg capsule 100 mg PO TID PRN (Reason: Cough) RF: 0 Flovent HFA 110 mcg/actuation HFA aerosol inhaler 1 puff INHALATION UD PRN (Reason: short of breath) RF: 0 propranolol 60 mg Tablet 60 mg PO BID RF: 0 Referrals Referrals: Suresh Mathis MD [Primary Care Provider] - Discharge Problem: Abdominal ascites Qualifiers: Ascites type: other type Qualified Code(s): R18.8 - Other ascites
[2021-08-30 18:30] LABS: INR 1.2 (0.9-1.1); Partial Thromboplastin Ratio 1.2; Partial Thromboplastin Time 31.4 Seconds (21.0-31.0); Prothrombin Time 12.3 Seconds (9.0-12.0)
[2021-08-30 18:37] LABS: Troponin I 0.03 ng/ml (0-0.04)
[2021-08-30 18:45] LABS: Albumin Globulin Ratio 0.8 (0.9-2); Albumin Level 3.1 gm/dl (3.4-5.0); BUN Creatinine Ratio 25.3 (10-20); Bilirubin,Total 2.9 mg/dl (0.2-1.0); Creatinine Clr Calc Pharmacy 93.4 ml/min; Est GFR (Non-African American) 94.9 ml/min; Globulin 4.1 gm/dl (2.5-4.0); Magnesium 1.8 mg/dl (1.7-2.4); Potassium 4.3 mmol/L (3.5-5.1); Total Protein 7.2 gm/dl (6.0-8.3)
[2021-08-30 18:45] LABS: Influenza A virus by PCR Negative (Negative); Influenza B virus by PCR Negative (Negative)
[2021-08-30 20:13] LABS: D Dimer 6490 ug/L FEU (0-500)
[2021-08-30] MEDS ORDERED: OPTIRAY 320 125ml IV ONE (21:19)
[2021-08-30 22:52] LABS: Adenovirus PCR Not Detected (NotDetected); Bordetella parapertussis PCR Not Detected (NotDetected); Bordetella pertussis PCR Not Detected (NotDetected); Chlamydia pneumoniae PCR Not Detected (NotDetected); Coronavirus 229E PCR Not Detected (NotDetected); Coronavirus CoV-2 (COVID19)PCR Not Detected (NotDetected); Coronavirus HKU1 PCR Not Detected (NotDetected); Coronavirus NL63 PCR Not Detected (NotDetected); Coronavirus OC43PCR Not Detected (NotDetected); Human Metapneumovirus PCR Not Detected (NotDetected); Influenza A PCR Not Detected (NotDetected); Influenza B PCR Not Detected (NotDetected); Mycoplasma pneumoniae PCR Not Detected (NotDetected); Parainfluenza Virus 1 PCR Not Detected (NotDetected); Parainfluenza Virus 2 PCR Not Detected (NotDetected); Parainfluenza Virus 3 PCR Not Detected (NotDetected); Parainfluenza Virus 4 PCR Not Detected (NotDetected); Respiratory Syncytial VirusPCR Not Detected (NotDetected); Rhinovirus/Enterovirus PCR Not Detected (NotDetected)
--- NOTE | 2021-08-31 02:04 | History and Physical Report ---
DATE OF ADMISSION: 08/30/2021. CHIEF COMPLAINT: Shortness of breath. HISTORY OF PRESENT ILLNESS: This is a 66-year-old male with past medical history significant for acquired hypothyroidism, laryngopharyngeal reflux disease, secondary esophageal varices without bleeding, paroxysmal supraventricular tachycardia, nonrheumatic aortic valve stenosis, history of hepatocellular carcinoma, GERD, compression fracture of lumbar vertebrae, who lives with his , ambulates without any support, comes here because of ongoing shortness of breath. The patient was in the hospital in May with pneumonia, treated with antibiotics. After that about 10 to 14 days, he was requiring oxygen, then it was discontinued. The patient says he is having shortness of breath since the last couple of months and dry cough and today his daughter checked his pulse ox, it was in mid 80s. He went to PCP, there it was 86%. Advised to come to the ER. The patient denies any chest pain. No fevers, no nausea, no vomiting, no dysphagia. Appetite is okay. No headache, no blurred vision, no earache, no runny nose, no sore throat. No abdominal pain. Normal bowel and bladder movements. Ambulates without any support. ALLERGIES: SULFA ANTIBIOTICS. PAST MEDICAL HISTORY: As mentioned above. PAST SURGICAL HISTORY: Colonoscopy, EGDs, IR biopsy, IR cancer ablation. MEDICATIONS: The patient is on benzonatate 100 mg p.o. b.i.d. p.r.n., Centrum Silver 1 tablet p.o. daily, Flovent 1 puff inhalation p.r.n., levothyroxine 112 mcg p.o. a.m., Protonix 40 mg p.o. a.m., MiraLax 17 g p.o. daily p.r.n., propranolol 60 mg p.o. b.i.d. FAMILY HISTORY: Significant for brother has diabetes, chronic kidney disease stage III; father has nose cancer; sister has fatty liver; father has heart disease. SOCIAL HISTORY: No smoking, no alcohol, no drug use. REVIEW OF SYSTEMS: As per HPI. Rest of the review of systems is negative. PHYSICAL EXAMINATION: GENERAL: The patient is of moderate build, not in acute distress. VITAL SIGNS: Temperature 36.4, pulse 55, respiratory rate 16, blood pressure 117/64, oxygen was 88% on room air, currently 97% on 2 liters. HEENT: Pupils equal, round, and reactive to light. Oral mucosa moist. NECK: No JVD, no neck masses. CARDIOVASCULAR: S1 and S2 heard. Regular rate and rhythm. No murmur, no gallop. RESPIRATORY SYSTEM: Normal AP diameter. No accessory muscle use. No wheezing, no crackles. ABDOMEN: Soft, bowel sounds present, nontender. Mild distention. CENTRAL NERVOUS SYSTEM: Cranial nerves II-XII grossly intact, nonfocal. EXTREMITIES: No edema, no erythema. LABORATORY DATA: WBC 7.6, hemoglobin 14.6, hematocrit 41.9, platelets 131. PT 12.3, INR 1.2, APTT 31.4. D-dimer 6490. Sodium 136, potassium 4.3, chloride 103, bicarb 26, BUN 20, creatinine 0.7, serum glucose 79, calcium 9, magnesium 1.8, total bilirubin 2.9, AST 86, ALT 37, alkaline phosphatase 189. Troponin I of 0.03. BioFire negative. SARS-CoV-2 RNA negative. IMAGING DATA: Chest x-ray, mild interstitial coarsening without evidence of airspace opacities to suggest pneumonia. CT of the chest, preliminary report shows scarring and fibrotic changes noted bilaterally, right greater than left. Mild atelectatic changes. No infiltrate, effusion, or pneumothorax. Small nodules in the mediastinum. Calcified left hilar nodes nodules. The heart is large. Mild atherosclerosis. Coronary artery calcification. No aneurysm or dissection. No PE. Nodular liver, hepatic calcification. Free fluid in the upper abdomen. In comparison to 05/27/2021, similar appearance to the lungs with interval increase of upper abdominal ascites. ASSESSMENT AND PLAN: A 66-year-old male who comes with shortness of breath and hypoxia. 1. Shortness of breath and hypoxia, 86% on room air, requiring oxygen. CTA chest preliminary report showed fibrotic lungs. There was no obvious infection. Will place on nebs around the clock and consult pulmonary. Continue oxygen supplementation,two step prior to discharge. Await pulmonary input. 2. History of cirrhosis of liver, esophageal varices, causing increasing ascites. GI consultation. 3. The patient is with history of paroxysmal supraventricular tachycardia, history of mild aortic stenosis: Continue home beta dimitri. Follow with Cardiology. 4. History of hypothyroidism, Graves disease: Status post radioiodine therapy. Continue levothyroxine. 5. History of cryptogenic cirrhosis, hepatic carcinoma, status post chemoembolization, ablation. Continue home medications. Follow with GI. 6. Anemia of chronic disease. Hemoglobin at 14.6. 7. Deep venous thrombosis prophylaxis: Will place him on Lovenox. DISPOSITION: Admit to [facility] tele. PT/OT prior to discharge. Social service to help with discharge planning. Job ID: [id number] [facility]
[2021-08-31] MEDS ORDERED: ACETAMINOPHEN 325 MG TAB PO PRN (02:14)
[2021-08-31] MEDS ORDERED: POLYETHYLENE (MIRALAX) 17 GM PACK PO PRN (02:14)
[2021-08-31] MEDS ORDERED: NITROGLYCERIN SL 0.4 MG/TAB TAB SL PRN (02:14)
[2021-08-31] MEDS ORDERED: BENZONATATE 100 MG CAPSULE PO PRN (02:14)
[2021-08-31] MEDS ORDERED: PSYLLIUM 58.6% POWDER PACKET PO PRN (02:31)
[2021-08-31] MEDS: LEVALBUTEROL HCL 1.25 MG/3 ML NEB NEB SCH ×4 (04:32→20:10)
[2021-08-31 05:31] LABS: Basophils # (auto) 0.02 K/uL (0-0.2); Basophils % (auto) 0.3 %; Eosinophils # (auto) 0.27 K/uL (0-0.5); Eosinophils % (auto) 4.2 %; Hematocrit (blood only) 37.7 % (42-52); Hemoglobin 12.7 g/dL (14.0-18.0); Immature Granulocytes # (auto) 0.02 K/uL (0.00-0.02); Immature Granulocytes % (auto) 0.3 %; Lymphocytes # (auto) 1.48 K/uL (1.2-3.4); Lymphocytes % (auto) 22.8 %; Mean Corpuscular Hemoglobin 35.7 pg (25-34); Mean Corpuscular Hgb Conc 33.7 g/dL (32-36); Mean Corpuscular Volume 105.9 fL (80-100); Mean Platelet Volume 9.7 fL (7.4-10.4); Monocytes # (auto) 0.74 K/uL (0.11-0.59); Monocytes % (auto) 11.4 %; Neutrophils # (auto) 3.96 K/uL (1.4-6.5); Platelet Count 121 K/uL (130-400); RDW Coefficient of Variation 16.8 % (11.5-14.5); RDW Standard Deviation 64.6 fL (36.4-46.3); Red Blood Count 3.56 M/uL (4.7-6.1); White Blood Count 6.49 K/uL (4.8-10.8)
[2021-08-31 05:40] LABS: BUN Creatinine Ratio 22.4 (10-20); Calcium 8.4 mg/dl (8.5-10.1); Creatinine Clr Calc Pharmacy 86.8 ml/min; Est GFR (African American) 106.7 ml/min; Est GFR (Non-African American) 92.1 ml/min; Magnesium 1.8 mg/dl (1.7-2.4); Potassium 3.9 mmol/L (3.5-5.1)
[2021-08-31] MEDS: LEVOTHYROXINE SODIUM 112 MCG TABLET PO SCH (06:43)
--- NOTE | 2021-08-31 08:27 | CT Scan Report ---
CT angio chest PE protocol CLINICAL HISTORY: +dd sob hypoxic TECHNIQUE: Multidetector row helical CT of the chest was performed. Coronal and sagittal reformations were obtained. Coronal and sagittal MIPS were obtained from the axial data set and were submitted fo r review. Automated dose lowering techniques and/or adjustment according to patient size were utiliz ed for this exam. Comparison: Comparison is made to CT chest done 2020 FINDINGS: Lungs and pleura: Reticular interstitial opacities are seen most prominent in the right lower lobe. B ronchiectasis and scarring are seen. Heart and pericardium: There is cardiomegaly without evidence of pericardial effusion. Vessels: Mild atherosclerotic changes in the aorta and coronary arteries. Mediastinum and lei: Unremarkable. Chest wall and lower neck: Unremarkable. Abdomen: Moderate ascites is seen. There is lobular contour of the liver concerning for cirrhosis. A hiatal hernia is seen. Calcifications are noted in the spleen which may be due to prior granulomatous disease. Bones: Unremarkable. IMPRESSION: 1. No evidence of pulmonary embolism. 2. Interstitial lung disease is again seen. ACT 112: Negative or not required by law. Electronically signed by: Sree Johnson M.D. 08/31/2021 8:26 AM
[2021-08-31] MEDS: PANTOprazole 40 MG TAB PO SCH (08:29)
[2021-08-31] MEDS: CEROVITE ADV FORMULA TAB PO SCH (08:29)
[2021-08-31] MEDS: PROPRANOLOL HCL 20 MG TAB PO SCH (08:29)
[2021-08-31] MEDS: ENOXAPARIN INJ 40 MG/0.4 ML SYR SQ SCH (08:30)
[2021-08-31] MEDS ORDERED: FLUTICASONE FUROATE 100MCG 14 PUFFS/INHALER INH PRN (09:00)
[2021-08-31] MEDS: ALBUMIN HUMAN 25% 12.5 GM/50 ML VIAL IV SCH ×4 (09:09→12:25)
--- NOTE | 2021-08-31 10:08 | Gastrointestinal Consultation ---
Date of Consultation August 31, 2021 Assessment & Plan (1) Liver cirrhosis: (2) Abdominal ascites: (3) Shortness of breath: Pt is a 66 yo male w hx of cirrhosis (AIH vs celiac), complicated by development of portal HTN, GAVE s/p APC, esophageal varices s/p banding (last done 07/2021), HCC s/p IR ablation/injection 01/2021; presented w dry cough and SOB. Hx of pneumonia 3 months ago wo signs of respiratory infection or COVID at this time. His Ddimer was up, but no PE on CTA. He appears to have developed large amount of ascites. MELD 13 - US paracentesis w Albumin IV repletion, fluid analysis (cell ct, albumin, protein, cx) - US duplex hepatic vein to r/o PVT - Urine and blood cultures - Last echo 03/2021 (aortic stenosis). Will repeat echo w bubble study to r/o shunt, hepatopulmonary syndrome - Start diuretics: Lasix 40mg, Spironolactone 100mg daily - 2g Na diet Supervising Physician Co-Signing Physician Notes I performed a history and physical examination of the patient today, including specifically on physical exam - soft abdomen. I have discussed the patient's management with the advanced practitioner. Please refer to the nurse practitioner's note for the documented findings and plan of care. Mild decompensation of his cirrhosis, unclear etiology. Obtain Portal Vein Us. Tap ascites. Sepsis work up. History of Present Illness Reason for Consultation: Ascites Requesting Physician: Dr. Hattie Baca Attending Physician: Dr. Sarath Nagy History of Present Illness Pt is a 66 yo male who presented w c/o SOB + dry cough. No fever, chills, n/v, abd pain, bowel habit changes otherwise.. 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 He wants to defer evaluation for liver transplant. Pt had pneumonia in May. CXR, CTA chest showed interstitial lung disease but no recurrence of pneumonia, no PE (Ddimer high). He is COVID 19, respiratory pathogen panel negative. Labs showed mild anemia though he denies any s/s of GI bleeding. It is noted however that he is having large amt of ascites. He denies increased intake of salty foods, new meds, sick contact. He is not on diuretics. Allergies Allergy/AdvReac Type Severity Reaction Status Date / Time Sulfa (Sulfonamide Allergy Intermediate Hives Verified 08/30/21 19:32 Antibiotics) Home Medications Medication Instructions Recorded Confirmed Type knvpffxu-[id number]-ncuzr acid 300 1 tab PO DAILY 06/24/18 08/30/21 History mcg-lycopene 600 mcg-lutein 300 mcg tablet (Centrum Silver Men) pantoprazole 40 mg tablet,delayed 40 mg PO QAM 10/08/18 08/30/21 History release polyethylene glycol 3350 17 17 gm PO DAILY PRN #1 gm 04/21/19 08/30/21 History gram/dose oral powder psyllium husk 3.4 gram/5.4 gram 1 tbs PO DAILY PRN #60 gm 04/21/19 08/30/21 History oral powder levothyroxine 112 mcg tablet 112 mcg PO QAM #90 tab 07/31/19 08/30/21 Rx benzonatate 100 mg capsule 100 mg PO TID PRN 05/27/21 08/30/21 History fluticasone propionate 110 1 puff INHALATION UD PRN 05/27/21 08/30/21 History mcg/actuation HFA aerosol inhaler (Flovent HFA) propranolol 60 mg tablet 60 mg PO BID 08/11/21 08/30/21 History Patient History Medical History Anemia BPH (benign prostatic hyperplasia) Cirrhosis Closed left femoral fracture april 2018 Elevated liver enzymes Esophageal varices BANDING 09/2018 GERD (gastroesophageal reflux disease) H/O Graves' disease Hemorrhoids History of pneumonia HOSPITALIZED AT [facility] 05/2021 Hypothyroidism SVT (supraventricular tachycardia) FOLLOWS W/ DR. QUISPE Surgical History History of colonoscopy History of esophagogastroduodenoscopy (EGD) History of open reduction and internal fixation (ORIF) procedure LEFT FEMUR Family History Brother Family history of diabetes mellitus Other Family history non-contributory High cholesterol Myocardial infarction No family history of adverse response to anesthesia Social History Smoking Status: Never smoker Second Hand Exposure: No; Hx Alcohol Use: No Hx Substance Use: No Preferred Language: Greek Communication Ability: Effective Visual Impairment: Limited Hearing Ability: Normal Museum Tour Guide Required: No Beliefs That Will Affect Care: None marital status: Current Living Situation: Spouse Current Living Situation Comment: Live with Feels Safe at Home: Yes Safety Concerns: Feels Safe At This Time Assistive Devices: None Review of Systems Review of Systems: All systems reviewed & are unremarkable except as noted in HPI & below Physical Exam Constitutional: WD/WN, vitals as above well groomed, cooperative and comfortable Eyes: PERRL, conjunctivae normal, anicteric sclerae ENMT: external ear and nose normal, oropharynx normal Respiratory: normal respiratory effort, lungs clear to auscultation Cardiovascular: RRR, no murmur, no edema Gastrointestinal (Abdomen): Mildly distended abdomen wo tenderness, BS hypoactive Skin: no rashes, warm and dry no jaundice Psychiatric: A+Ox3, euthymic affect Lymphatic: no lymphedema Results & Data ([facility]) Vital Signs (Past 12 Hours) Vital Signs Pulse Pulse Resp BP Pulse Ox Pulse Ox 08/31/21 08:55 57 L 20 115/69 94 08/31/21 04:00 57 L 20 104/57 L 97 08/31/21 02:52 58 L 20 113/65 98 98 08/30/21 23:15 55 L 55 L 16 117/64 97 (1) Abdominal ascites Ascites type: other type Qualified Code(s): R18.8 - Other ascites
--- NOTE | 2021-08-31 10:38 | Pulmonary Consultation ---
Date of Consultation August 31, 2021 Assessment & Plan (1) Shortness of breath: (2) Hypoxia: (3) Idiopathic interstitial pulmonary disease: Attending: Dr. Ross Impression: 66-year-old male with previous pneumonia in May 2021. Discharged on supplemental oxygen which was subsequently discontinued. No previous history of pulmonary disease. Lifelong non-smoker. No vocational or agricultural exposure to toxins. Patient now short of breath and on supplemental oxygen at 2 L/min via nasal cannula without acute respiratory distress. Recommendations: 1. Hypoxia: * Patient appears to have interstitial lung disease on chest x-ray as well as CT scan of the chest. * No evidence of pneumonia or other infection at this time * Will continue to provide supplemental oxygen to maintain SaO2 greater than 90%. * Recommend two-step evaluation prior to discharge to identify ongoing outpatient supplemental oxygen needs * No prior pulmonary function testing * No prior tobacco abuse history 2. Probable interstitial lung disease: * CT scan as well as x-ray of the chest identified probable interstitial lung disease * No previous work-up per patient * No previous record in the [facility] or [facility] records to indicate prior pulmonary disease or pulmonary visits * Will do basic interstitial lung disease work-up including ALEJANDRO, rheumatoid factor, CCPA, Jo1, total creatinine kinase. * Most of this most likely will require outpatient work-up * Would recommend follow-up with the pulmonary clinic on discharge Thank you for including us in the care of this patient. We will continue to follow along with you during this hospital admission. Please refer to Dr. Ross's addendum for further recommendations. History of Present Illness Reason for Consultation: Hypoxia Requesting Physician: Dr. Mullins Attending Physician: Hattie Baca MD History of Present Illness Attending: Dr. Ross This is a 66-year-old male with a past medical history including secondary esophageal varices, hepatocellular carcinoma, paroxysmal SVT, acquired hypothyroidism, GERD, compression fracture of L3 lumbar vertebrae, nonrheumatic aortic valve stenosis, [place]. Patient reports that he had pneumonia in May. He was discharged at that time on antibiotics as well as supplemental oxygen. He improved and stopped using the oxygen. Over the last 2 to 3 days he noticed that he had increasing shortness of breath and presented to the emergency department for evaluation. Patient was found to have ascites. He has a history of hepatocellular carcinoma [place] and follows with Dr. Nagy from the [facility] GI team. Carcinoma was treated with interventional Cesar neurology with Dr. Sanders at [facility]. Patient has not received any chemotherapy or any adjuvant therapy. Patient is a lifelong non-smoker. He denies any previous pulmonary history other than the pneumonia last fall. He has no history of COPD or asthma. Patient is on Flovent 1 puff daily as needed at home. He is not on any other pulmonary medications. Patient currently is on 2 L/min via nasal cannula for supplemental oxygen. He is saturating at 97%. He has no use of accessory muscles and appears to be in no respiratory distress. CTA of the chest performed 08/30/2021 was negative for pulmonary emboli. He does have interstitial lung disease as demonstrated by reticular interstitial opacities seen most prominent in the right lower lobe. He also has evidence of bronchiectasis. Patient is negative for COVID-19 Patient received vaccination against COVID with [employer] 11/17/2020 and 12/08/2020. He received influenza vaccination 05/13/2021. Allergies Allergy/AdvReac Type Severity Reaction Status Date / Time Sulfa (Sulfonamide Allergy Intermediate Hives Verified 08/30/21 19:32 Antibiotics) Home Medications Medication Instructions Recorded Confirmed Type cakdrrdp-xmt-pqxgl acid 300 1 tab PO DAILY 06/24/18 08/30/21 History mcg-lycopene 600 mcg-lutein 300 mcg tablet (Centrum Silver Men) pantoprazole 40 mg tablet,delayed 40 mg PO QAM 10/08/18 08/30/21 History release polyethylene glycol 3350 17 17 gm PO DAILY PRN #1 gm 04/21/19 08/30/21 History gram/dose oral powder psyllium husk 3.4 gram/5.4 gram 1 tbs PO DAILY PRN #60 gm 04/21/19 08/30/21 History oral powder levothyroxine 112 mcg tablet 112 mcg PO QAM #90 tab 07/31/19 08/30/21 Rx benzonatate 100 mg capsule 100 mg PO TID PRN 05/27/21 08/30/21 History fluticasone propionate 110 1 puff INHALATION UD PRN 05/27/21 08/30/21 History mcg/actuation HFA aerosol inhaler (Flovent HFA) propranolol 60 mg tablet 60 mg PO BID 08/11/21 08/30/21 History Patient History Medical History Anemia BPH (benign prostatic hyperplasia) Cirrhosis Closed left femoral fracture april 2018 Elevated liver enzymes Esophageal varices BANDING 09/2018 GERD (gastroesophageal reflux disease) H/O Graves' disease Hemorrhoids History of pneumonia HOSPITALIZED AT [facility] 05/2021 Hypothyroidism SVT (supraventricular tachycardia) FOLLOWS W/ DR. QUISPE Surgical History History of colonoscopy History of esophagogastroduodenoscopy (EGD) History of open reduction and internal fixation (ORIF) procedure LEFT FEMUR Family History Brother Family history of diabetes mellitus Other Family history non-contributory High cholesterol Myocardial infarction No family history of adverse response to anesthesia Social History Smoking Status: Never smoker Second Hand Exposure: No; Hx Alcohol Use: No Hx Substance Use: No Preferred Language: Welsh Communication Ability: Effective Visual Impairment: Limited Hearing Ability: Normal Export Documents Clerk Required: No Beliefs That Will Affect Care: None marital status: Current Living Situation: Spouse Current Living Situation Comment: Live with Feels Safe at Home: Yes Safety Concerns: Feels Safe At This Time Assistive Devices: Glasses Review of Systems Review of Systems: All systems reviewed & are unremarkable except as noted in Subjective Physical Exam Physical Exam: GENERAL : No acute distress. No use of accessory muscles. EYES: No icterus, gaze conjugate NOSE: No evidence of epistaxis MOUTH: No lesions or candidiasis NECK: Supple LUNGS: Velcro type crackles at the bilateral bases. No bronchospasm. No rhonchi appreciated. HEART: Regular, rate controlled. Systolic murmur noted consistent with aortic stenosis ABDOMEN: Soft, NT, ND, BS Present EXTREMITIES: No LE edema, pedal pulses intact and equal bilaterally. NEURO: A&OX3 Results & Data Results & Data ([facility]) Vital Signs (Past 12 Hours) Vital Signs Pulse Pulse Resp BP Pulse Ox Pulse Ox 08/31/21 08:55 57 L 20 115/69 94 08/31/21 04:00 57 L 20 104/57 L 97 08/31/21 02:52 58 L 20 113/65 98 98 08/30/21 23:15 55 L 55 L 16 117/64 97 Laboratory Results 08/31/21 05:04 08/31/21 05:04 COVID-19 Results 08/30/21 Unknown SARS-CoV-2 (PCR) Not Detected Diagnostic Findings Chest X-Ray 08/30/21 17:04 XR chest 1V portable CLINICAL HISTORY: SOB TECHNIQUE: Single frontal radiograph of the chest was obtained. Comparison: Comparison is made to chest one view 05/30/2021 FINDINGS: No lines and tubes are seen. The cardiomediastinal silhouette is normal. Lungs are underinflated. Interstitial coarsening is again seen. No airspace disease is seen. No evidence of pleural effusion or pneumothorax. IMPRESSION: Interstitial coarsening without evidence of airspace opacity to suggest pneumonia. ACT 112: Negative or not required by law. Electronically signed by: Sree Johnson M.D. 08/30/2021 5:20 PM Chest CTA 08/30/21 20:14 CT angio chest PE protocol CLINICAL HISTORY: +dd sob hypoxic TECHNIQUE: Multidetector row helical CT of the chest was performed. Coronal and sagittal reformations were obtained. Coronal and sagittal MIPS were obtained from the axial data set and were submitted for review. Automated dose lowering techniques and/or adjustment according to patient size were utilized for this exam. Comparison: Comparison is made to CT chest done 2020 FINDINGS: Lungs and pleura: Reticular interstitial opacities are seen most prominent in the right lower lobe. Bronchiectasis and scarring are seen. Heart and pericardium: There is cardiomegaly without evidence of pericardial effusion. Vessels: Mild atherosclerotic changes in the aorta and coronary arteries. Mediastinum and lei: Unremarkable. Chest wall and lower neck: Unremarkable. Abdomen: Moderate ascites is seen. There is lobular contour of the liver concerning for cirrhosis. A hiatal hernia is seen. Calcifications are noted in the spleen which may be due to prior granulomatous disease. Bones: Unremarkable. IMPRESSION: 1. No evidence of pulmonary embolism. 2. Interstitial lung disease is again seen. ACT 112: Negative or not required by law. Electronically signed by: Sree Johnson M.D. 08/31/2021 8:26 AM PG Care Time/CCT Total # of Minutes Spent Total Time Spent with Patient: Total time spent is greater than 50% in coordination of care (as documented) at patient's floor/unit and/or counseling patient: 60 minutes Coding Level of Care Code 49724 Inpt Consult Level 5 Diagnoses Shortness of breath R06.02 Hypoxia R09.02 Idiopathic interstitial pulmonary disease J84.9 Time Spent (min) 60
--- NOTE | 2021-08-31 12:42 | Ultrasound Report ---
US duplex portal hepatic veins CLINICAL HISTORY: Cirrhosis. Evaluate for portal vein thrombus. COMPARISON STUDY: Hepatic Doppler ultrasound June 25, 2018. TECHNIQUE: Color and duplex Doppler sonography of the major hepatic vessels was performed. FINDINGS: The liver is cirrhotic. The main, left and right portal veins are patent with appropriately directed flow. The middle, left and hepatic veins are patent. Perihepatic ascites is noted. Gallblad kolby wall thickening is a nonspecific finding. IMPRESSION: 1. Patent portal veins with appropriately directed flow. 2. Cirrhosis with ascites. ACT 112: Negative or not required by law. Electronically signed by: Tobias Tapia M.D. 08/31/2021 12:41 PM
--- NOTE | 2021-08-31 13:14 | Ultrasound Report ---
US abdomen ltd ascites CLINICAL HISTORY: ascites . Evaluate for fluid for paracentesis TECHNIQUE: Real-time grayscale sonographic images of the 4 quadrants of the abdomen were obtained. Comparison: None available at the time of this dictation. FINDINGS: There is only a small amount of fluid present over the dome of the liver. Small amount of f luid is also seen in the right lower quadrant. However, numerous loops of bowel are present in the ri ght lower quadrant and there is no window available for paracentesis. No fluid is seen in the left up per quadrant or left lower quadrant. IMPRESSION: Mild ascites as described above. There was not an adequate window present to perform a pa racentesis. The findings were discussed with the patient. ACT 112: Negative or not required by law. Electronically signed by: Nando Her M.D. 08/31/2021 1:13 PM
--- NOTE | 2021-08-31 17:58 | Hospitalist Progress Note ---
Date of Service August 31, 2021 Assessment & Plan (1) Idiopathic interstitial pulmonary disease: (2) Shortness of breath: (3) Hypoxia: (4) Abdominal ascites: Plan: 66-year-old male with PMH of cirrhosis (AIH vs celiac), GAVE s/p APC, esophageal varices s/p banding last done 07/2021), HCC s/p IR ablation/injection 01/2021, acquired hypothyroidism, laryngopharyngeal reflux disease, paroxysmal supraventricular tachycardia, nonrheumatic aortic valve stenosis, GERD, c ompression fracture of lumbar vertebrae, who lives with his , ambulates without any support presented 08/30 with SOB and chronic cough. Patient also reports having some belly distention lately. He has been managed by the following: #. Shortness of breath #. Acute hypoxic respiratory failure #. Chronic cough - likely 2/2 underlying interstitial lung dz vs other etiology Patient reports having chronic cough since last 3 years, denies any smoking history except for occasional smoking during his 20s. Patient was treated for pneumonia last May. Patient reports having shortness of breath since last couple of months. Prior to arrival, his daughter checked his pulse ox and it was in mid 80s. Patient denies history of blood clot. Patient denies productive cough. Admitting CXR: Interstitial coarsening without airspace opacity. Admitting CTA chest: No evidence of PE, interstitial lung disease again seen. Respiratory panel negative Continue with home meds, continue with Tessalon Perles. Pulmonology evaluated the patient. Sent basic interstitial lung disease work-up including ALEJANDRO and other antibody work-up. 2 step test prior to discharge, PFT and pulmonology follow-up as an outpatient. #. Abdominal distention #. Ascites History of hepatocellular carcinoma and ascites Admitting abdominal ultrasound: Mild ascites, not enough to perform paracentesis. Admitting portal vein ultrasound: Patent portal veins with appropriately directed flow. Cirrhosis with ascites. GI evaluated, patient started on diuretics Lasix 40 mg and 100 mg Daily, low- sodium diet Continue to monitor #. Other chronic medical conditions: Laryngeal pharyngeal reflux disease, hypothyroidism, anemia of chronic disease Continue with/resume home medications as and when appropriate DVT prophylaxis: On Lovenox Full code 08/31: Patient's daughter given update at bedside about the patient's current status and the need to follow-up with pulmonology and GI doctor as an outpatient, she voiced understanding and was agreeable to the plan of care. Answered all her questions. . Admission and Anticipated Discharge Date Admission Date: August 30, 2021 Subjective Patient was lying in bed, on 2 L nasal cannula oxygen, NAD, no new acute events overnight. Patient was gone for ultrasound earlier, check patient later on. Patient reports chronic cough and some belly distention. Per RN patient is doing okay. Patient denies any fever/chills/chest pain/palpitation/belly pain/other review of symptoms. Physical Exam Physical Exam: GENERAL: Alert and oriented x3. NAD, on RA. HEENT: No pallor, no icterus. Pupils equal, round and reactive to light. Oral mucosa moist. NECK: No JVD, no neck masses. HEART: S1 and S2 heard. Regular rate and rhythm. No murmur, no gallop. RESPIRATORY SYSTEM: Normal AP diameter. No accessory muscle use. No wheezing, bibasal crackles noted. ABDOMEN: Soft, bowel sounds present, nontender, no distention. CENTRAL NERVOUS SYSTEM: No facial droop. Speech is clear. Obeys simple commands. Moves extremities. EXTREMITIES: No edema, no erythema seen. BLE varicose veins. Results & Data Results & Data ([facility]) Vital Signs (Past 12 Hours) Vital Signs Pulse Resp BP Pulse Ox 08/31/21 17:12 64 22 123/63 97 08/31/21 13:19 62 20 95 08/31/21 12:26 57 L 20 108/60 100 08/31/21 08:55 57 L 20 115/69 94 (1) Abdominal ascites Ascites type: other type Qualified Code(s): R18.8 - Other ascites
[2021-09-01] MEDS: PROPRANOLOL HCL 20 MG TAB PO SCH ×2 (00:29→08:30)
[2021-09-01] MEDS: LEVALBUTEROL HCL 1.25 MG/3 ML NEB NEB SCH ×3 (00:56→12:59)
[2021-09-01] MEDS: LEVOTHYROXINE SODIUM 112 MCG TABLET PO SCH (05:39)
--- NOTE | 2021-09-01 06:11 | Electrocardiogram Report ---
Test Reason : Blood Pressure : / mmHG Vent. Rate : 063 BPM Atrial Rate : 063 BPM P-R Int : 178 ms QRS Dur : 080 ms QT Int : 442 ms P-R-T Axes : 036 -12 017 degrees QTc Int : 452 ms Poor data quality, interpretation may be adversely affected Normal sinus rhythm Possible Anterior infarct , age undetermined Nonspecific T wave abnormality Abnormal ECG When compared with ECG of 27-MAY-2021 18:53, Vent. rate has decreased BY 34 BPM Confirmed by Willie Garcia ([id number]) on 09/01/2021 6:10:56 AM Referred By: REFERRED SELF Confirmed By:Willie Garcia
[2021-09-01 07:22] LABS: Hematocrit (blood only) 35.5 % (42-52); Mean Corpuscular Hemoglobin 35.6 pg (25-34); Mean Corpuscular Hgb Conc 33.8 g/dL (32-36); Mean Corpuscular Volume 105.3 fL (80-100); Mean Platelet Volume 9.4 fL (7.4-10.4); Platelet Count 114 K/uL (130-400); RDW Coefficient of Variation 16.8 % (11.5-14.5); RDW Standard Deviation 64.5 fL (36.4-46.3); Red Blood Count 3.37 M/uL (4.7-6.1)
[2021-09-01 07:42] LABS: BUN Creatinine Ratio 23.6 (10-20); Calcium 8.7 mg/dl (8.5-10.1); Creatinine Clr Calc Pharmacy 102.3 ml/min; Est GFR (African American) 114.3 ml/min; Est GFR (Non-African American) 98.6 ml/min; Magnesium 1.7 mg/dl (1.7-2.4)
[2021-09-01 08:14] LABS: Appearance Urine Clear (Clear); Bilirubin Urine Negative (Negative); Blood Urine Negative (Negative); Color Urine Orange; Glucose Urine UA Negative (Negative); Ketones Urine Negative (Negative); Leukocyte Esterase Urine Negative (Negative); Nitrite Urine Negative (Negative); Protein Urine Negative (Negative); Specific Gravity Urine 1.017 (1.000-1.030); Urobilinogen Urine Negative (Negative)
[2021-09-01] MEDS: ENOXAPARIN INJ 40 MG/0.4 ML SYR SQ SCH (08:30)
[2021-09-01] MEDS: PANTOprazole 40 MG TAB PO SCH (08:31)
[2021-09-01] MEDS: CEROVITE ADV FORMULA TAB PO SCH (08:31)
[2021-09-01] MEDS ORDERED: SPIRONOLACTONE 100 MG TAB PO SCH (09:00)
[2021-09-01] MEDS ORDERED: FUROSEMIDE 40 MG TAB PO SCH (09:00)
--- NOTE | 2021-09-01 10:26 | Gastroenterology Progress Note ---
Date of Service September 01, 2021 Assessment & Plan (1) Liver cirrhosis: (2) Abdominal ascites: (3) Shortness of breath: Plan: Pt is a 66 yo male w hx of cirrhosis (AIH vs celiac), complicated by development of portal HTN, GAVE s/p APC, esophageal varices s/p banding (last done 07/2021), HCC s/p IR ablation/injection 01/2021; presented w dry cough and SOB. Hx of pneumonia 3 months ago wo signs of respiratory infection or COVID at this time but he has signs of interstitial lung disease. His Ddimer was up, but no PE on CTA. He appears to have developed large amount of ascites. MELD 13 US yesterday showed perihepatic ascites and RLQ ascites near bowels not accessible to tap thus paracentesis not obtained. Portal vein patent. Echo saline bubble study showed possible patent foramen ovale and aortic sclerosis. Pulmonology consulted. - Low dose diuretics: Lasix 20mg, Spironolactone 50mg daily - 2g Na diet - BMP 1 week in outpt setting to monitor electrolytes/renal function after initiation of diuretics - Will schedule f/u in Hepatology clinic - Defer to Pulmonology for lung disease workup - No contraindication for DC home from GI standpoint otherwise Admission and Anticipated Discharge Date Admission Date: August 30, 2021 Supervising Physician Co-Signing Physician Notes I have discussed the patient's management with the advanced practitioner. Please refer to the nurse practitioner's note for the documented findings and plan of care. Subjective Pt reports still having dry cough, and SOB is improved w supplemental oxygen. Denies abd pain, n/v. Review of Systems Review of Systems: All systems reviewed & are unremarkable except as noted in HPI & below Physical Exam Constitutional: WD/WN, vitals as above well groomed, cooperative and comfortable Eyes: PERRL, conjunctivae normal, anicteric sclerae ENMT: external ear and nose normal, oropharynx normal Respiratory: normal respiratory effort, lungs clear to auscultation Diminished bases Cardiovascular: RRR, no murmur, no edema Gastrointestinal (Abdomen): Mildly distended, non tender, BS present Skin: no rashes, warm and dry no jaundice Psychiatric: A+Ox3, euthymic affect Lymphatic: no lymphedema Results & Data ([facility]) Vital Signs (Past 12 Hours) Vital Signs Temp Pulse Pulse Pulse Resp BP Pulse Ox 09/01/21 07:52 36.4 C L 59 L 18 122/78 94 09/01/21 07:20 53 L 09/01/21 07:06 56 L 16 95 09/01/21 04:03 36.7 C 67 18 105/64 94 09/01/21 00:57 65 16 94 08/31/21 23:35 36.8 C 72 18 111/67 94 (1) Abdominal ascites Ascites type: other type Qualified Code(s): R18.8 - Other ascites
--- NOTE | 2021-09-01 12:43 | Pulmonology Progress Note ---
Date of Service September 01, 2021 Assessment & Plan (1) Shortness of breath: (2) Hypoxia: (3) Idiopathic interstitial pulmonary disease: Plan: Attending: Dr. Ross Impression: 66-year-old male with previous pneumonia in May 2021. Discharged on supplemental oxygen which was subsequently discontinued. No previous history of pulmonary disease. Lifelong non-smoker. No vocational or agricultural exposure to toxins. Patient now short of breath and on supplemental oxygen at 2 L/min via nasal cannula without acute respiratory distress. Recommendations: 1. Hypoxia: * Patient appears to have interstitial lung disease on chest x-ray as well as CT scan of the chest. * No evidence of pneumonia or other infection at this time * Two-step evaluation today reveals need for 2 L/min via nasal cannula at rest and with exertion * No smoking history * Long discussion with patient and daughter who is a home health nurse. Awaiting ILD labs. Follow-up with pulmonary in 4 weeks 2. Probable interstitial lung disease: * CT scan as well as x-ray of the chest identified probable interstitial lung disease * No previous work-up per patient * No previous record in the [facility] or [facility] records to indicate prior pulmonary disease or pulmonary visits * Will do basic interstitial lung disease work-up including ALEJANDRO, rheumatoid factor, CCPA, Jo1, total creatinine kinase. CRP, ESR, aldolase also ordered by Dr. Ross * Most of this most likely will require outpatient work-up * Patient scheduled to follow-up with Dr. Ross 10/03/2021 at 9:30 AM in the pulmonary clinic 3. Chronic cough: * Patient reports chronic cough for several months. * Will leave instruction on the discharge summary for chlorpheniramine, Flonase, pseudoephedrine to be purchased [id number]. The chlorpheniramine and the Flonase can be used until follow-up appoint with Dr. Ross. Advised patient to use the pseudoephedrine twice daily for 2 weeks then stop. * Patient is to continue his pantoprazole daily Telephone discussion with the daughter Kemi and the patient regarding probable ILD. Explained that we may never know etiology. 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 No smoking history. No other vocational exposure. Daughter and patient aware that this is most likely idiopathic. Will discharge patient on supplemental oxygen. Rx given to community case manager and DME arranged with [facility] in [place]. Thank you for including us in the care of this patient. We will sign off at this time. Admission and Anticipated Discharge Date Admission Date: August 30, 2021 Subjective Attending: Dr. Ross Patient seen in room 276 immediately after 2 step walk test. He will require 2 L/min via NC. No chest pain or tightness. He denies fever, chills, sweats, rigors. He does continue with a dry cough. This is described as chronic. He has no new complaints today. Review of Systems Review of Systems: All systems reviewed & are unremarkable except as noted in Subjective Physical Exam Physical Exam: GENERAL : No acute distress EYES: No icterus, gaze conjugate NOSE: No evidence of epistaxis MOUTH: No lesions or candidiasis NECK: Supple LUNGS: Bibasilar airway crackles. Upper lung lcemente clear HEART: Regular, rate controlled ABDOMEN: Soft, NT, ND, BS Present EXTREMITIES: No LE edema, pedal pulses intact NEURO: A&OX3 Results & Data Results & Data ([facility]) Vital Signs (Past 12 Hours) Vital Signs Temp Pulse Pulse Pulse Pulse Pulse Pulse 09/01/21 11:41 36.7 C 61 09/01/21 10:53 60 67 62 09/01/21 07:52 36.4 C L 59 L 09/01/21 07:20 53 L 09/01/21 07:06 56 L 09/01/21 04:03 36.7 C 67 09/01/21 00:57 65 Pulse Resp Resp Resp Resp Resp BP 09/01/21 11:41 18 137/82 09/01/21 10:53 70 18 20 18 18 09/01/21 07:52 18 122/78 09/01/21 07:20 09/01/21 07:06 16 09/01/21 04:03 18 105/64 09/01/21 00:57 16 Pulse Ox Pulse Ox Pulse Ox Pulse Ox Pulse Ox 09/01/21 11:41 92 09/01/21 10:53 93 94 91 85 L 09/01/21 07:52 94 09/01/21 07:20 09/01/21 07:06 95 09/01/21 04:03 94 09/01/21 00:57 94 Critical Care Results & Data Vital Signs (Past 12 Hours) Vital Signs Temp Pulse Pulse Pulse Pulse Pulse Pulse 09/01/21 13:00 09/01/21 12:53 36.7 C 56 L 61 09/01/21 11:41 36.7 C 61 09/01/21 10:53 60 67 62 09/01/21 07:52 36.4 C L 59 L 09/01/21 07:20 53 L 09/01/21 07:06 56 L 09/01/21 04:03 36.7 C 67 Pulse Resp Resp Resp Resp Resp BP 09/01/21 13:00 14 09/01/21 12:53 18 137/82 09/01/21 11:41 18 137/82 09/01/21 10:53 70 18 20 18 18 09/01/21 07:52 18 122/78 09/01/21 07:20 09/01/21 07:06 16 09/01/21 04:03 18 105/64 BP Pulse Ox Pulse Ox Pulse Ox Pulse Ox Pulse Ox 09/01/21 13:00 09/01/21 12:53 128/70 92 09/01/21 11:41 92 09/01/21 10:53 93 94 91 85 L 09/01/21 07:52 94 09/01/21 07:20 09/01/21 07:06 95 09/01/21 04:03 94 Lab & Micro Results (Past 24 Hours) RBC 3.37 M/uL (4.7-6.1) L 09/01/21 WBC 5.20 K/uL (4.8-10.8) 09/01/21 Hgb 12.0 g/dL (14.0-18.0) L 09/01/21 Hct 35.5 % (42-52) L 09/01/21 MCV 105.3 fL (80-100) H 09/01/21 MCH 35.6 pg (25-34) H 09/01/21 MCHC 33.8 g/dL (32-36) 09/01/21 RDW Standard Deviation 64.5 fL (36.4-46.3) H 09/01/21 RDW Coefficient of Variation 16.8 % (11.5-14.5) H 09/01/21 Plt Count 114 K/uL (130-400) L 09/01/21 MPV 9.4 fL (7.4-10.4) 09/01/21 Na 135 mmol/L (136-145) L 09/01/21 K 4.0 mmol/L (3.5-5.1) 09/01/21 Cl 104 mmol/L (98-107) 09/01/21 CO2 27 mmol/L (21-32) 09/01/21 Anion Gap 4 (3-11) 09/01/21 BUN 17 mg/dl (6-23) 09/01/21 Creatinine 0.72 mg/dl (0.6-1.4) 09/01/21 Estimated GFR ( Amer) 114.3 ml/min 09/01/21 Estimated GFR (Non-Af Amer) 98.6 ml/min 09/01/21 BUN/Creatinine Ratio 23.6 (10-20) H 09/01/21 Glu 85 mg/dl (70-99(Fasting)) 09/01/21 Ca 8.7 mg/dl (8.5-10.1) 09/01/21 Mg 1.7 mg/dl (1.7-2.4) 09/01/21 06:56 09/01/21 Calcium Level 8.7 mg/dl (8.5-10.1) 09/01/21 06:56 09/01/21 Microbiology 08/31/21 08:57 Aerobic Blood Culture - Preliminary Blood No growth in Aerobic bottle after 24 hours. Anaerobic Blood Culture - Preliminary No growth in Anaerobic bottle after 24 hours. 08/31/21 08:50 Aerobic Blood Culture - Preliminary Blood No growth in Aerobic bottle after 24 hours. Anaerobic Blood Culture - Preliminary No growth in Anaerobic bottle after 24 hours. I & O Totals 24 Hours 08/31/21 09/01/21 09/02/21 06:59 06:59 06:59 Intake Total 350 / 350 Balance 350 / 350 Cumulative 08/30/21 16:46 thru 09/01/21 12:53 Intake Total 350 Balance 350 RT Ventilator Mngmt (Last Documented) Ventilator Ordered Settings Respiratory Rate [Recovery] 18 09/01/21 10:53 Respiratory Rate [Exercise] 09/01/21 10:53 Respiratory Rate [Corrective 1 18 09/01/21 10:53 ] Respiratory Rate [Resting] 18 09/01/21 10:53 Respiratory Rate 14 09/01/21 13:00 Ventilator - PT Measurements Respiratory Rate [Recovery] 18 Respiratory Rate [Exercise] 20 Respiratory Rate [Corrective 1 18 ] Respiratory Rate [Resting] 18 Respiratory Rate 14 PG Care Time/CCT Total # of Minutes Spent Total Time Spent with Patient: Total time spent is greater than 50% in coordination of care (as documented) at patient's floor/unit and/or counseling patient: 60 minutes including discussion with daughter on the telephone and two visit with the patient Coding Level of Care Code 30973 Subseq Hosp Care Lvl 3 Diagnoses Shortness of breath R06.02 Hypoxia R09.02 Idiopathic interstitial pulmonary disease J84.9 Time Spent (min) 60 Comment Discussion with patient on 2 occasions plus telephone discussion with daughter
--- NOTE | 2021-09-01 12:54 | Discharge Summary ---
Date of Service September 01, 2021 Admission HPI Per Admitting Provider DATE OF ADMISSION: 08/30/2021. CHIEF COMPLAINT: Shortness of breath. HISTORY OF PRESENT ILLNESS: This is a 66-year-old male with past medical history significant for acquired hypothyroidism, laryngopharyngeal reflux disease, secondary esophageal varices without bleeding, paroxysmal supraventricular tachycardia, nonrheumatic aortic valve stenosis, history of hepatocellular carcinoma, GERD, compression fracture of lumbar vertebrae, who lives with his , ambulates without any support, comes here because of ongoing shortness of breath. The patient was in the hospital in May with pneumonia, treated with antibiotics. After that about 10 to 14 days, he was requiring oxygen, then it was discontinued. The patient says he is having shortness of breath since the last couple of months and dry cough and today his daughter checked his pulse ox, it was in mid 80s. He went to PCP, there it was 86%. Advised to come to the ER. The patient denies any chest pain. No fevers, no nausea, no vomiting, no dysphagia. Appetite is okay. No headache, no blurred vision, no earache, no runny nose, no sore throat. No abdominal pain. Normal bowel and bladder movements. Ambulates without any support. ALLERGIES: SULFA ANTIBIOTICS. PAST MEDICAL HISTORY: As mentioned above. PAST SURGICAL HISTORY: Colonoscopy, EGDs, IR biopsy, IR cancer ablation. MEDICATIONS: The patient is on benzonatate 100 mg p.o. b.i.d. p.r.n., Centrum Silver 1 tablet p.o. daily, Flovent 1 puff inhalation p.r.n., levothyroxine 112 mcg p.o. a.m., Protonix 40 mg p.o. a.m., MiraLax 17 g p.o. daily p.r.n., propranolol 60 mg p.o. b.i.d. FAMILY HISTORY: Significant for brother has diabetes, chronic kidney disease stage III; father has nose cancer; sister has fatty liver; father has heart disease. SOCIAL HISTORY: No smoking, no alcohol, no drug use. REVIEW OF SYSTEMS: As per HPI. Rest of the review of systems is negative. Admission Exam Per Admitting Provider GENERAL: The patient is of moderate build, not in acute distress. VITAL SIGNS: Temperature 36.4, pulse 55, respiratory rate 16, blood pressure 117/64, oxygen was 88% on room air, currently 97% on 2 liters. HEENT: Pupils equal, round, and reactive to light. Oral mucosa moist. NECK: No JVD, no neck masses. CARDIOVASCULAR: S1 and S2 heard. Regular rate and rhythm. No murmur, no gallop. RESPIRATORY SYSTEM: Normal AP diameter. No accessory muscle use. No wheezing, no crackles. ABDOMEN: Soft, bowel sounds present, nontender. Mild distention. CENTRAL NERVOUS SYSTEM: Cranial nerves II-XII grossly intact, nonfocal. EXTREMITIES: No edema, no erythema. Principal Diagnosis Interstitial lung disease Acute respiratory failure Ascites and liver cirrhosis Discharge Exam GENERAL: Alert and oriented x3. NAD, on RA. HEENT: No pallor, no icterus. Pupils equal, round and reactive to light. Oral mucosa moist. NECK: No JVD, no neck masses. HEART: S1 and S2 heard. Regular rate and rhythm. No murmur, no gallop. RESPIRATORY SYSTEM: Normal AP diameter. No accessory muscle use. No wheezing, bibasal crackles noted. ABDOMEN: Soft, bowel sounds present, nontender, no distention. CENTRAL NERVOUS SYSTEM: No facial droop. Speech is clear. Obeys simple commands. Moves extremities. EXTREMITIES: No edema, no erythema seen. BLE varicose veins. Discharge Data Allergies Allergy/AdvReac Type Severity Reaction Status Date / Time Sulfa (Sulfonamide Allergy Intermediate Hives Verified 08/30/21 19:32 Antibiotics) Consultations 08/30/21 19:40 ED Decision to Admit Stat 08/31/21 08:00 Consult Gastroenterology Routine Consult Pulmonology Routine Ordered Studies 08/30/21 20:14 CT angio chest PE protocol Urgent 08/31/21 08:27 US abdomen ltd ascites Routine 08/31/21 08:29 US duplex portal hepatic veins Routine Hospital Course (1) Idiopathic interstitial pulmonary disease: (2) Shortness of breath: (3) Hypoxia: (4) Abdominal ascites: 66-year-old male with PMH of cirrhosis (AIH vs celiac), GAVE s/p APC, esophageal varices s/p banding last done 07/2021), HCC s/p IR ablation/injection 01/2021, acquired hypothyroidism, laryngopharyngeal reflux disease, paroxysmal supraventricular tachycardia, nonrheumatic aortic valve stenosis, GERD, compression fracture of lumbar vertebrae, who lives with his , ambulates without any support presented 08/30 with SOB and chronic cough. Patient also reports having some belly distention lately. He has been managed for the following: #. Shortness of breath #. Acute hypoxic respiratory failure #. Chronic cough - likely 2/2 underlying interstitial lung dz vs other etiology Patient reports having chronic cough since last 3 years, denies any smoking history except for occasional smoking during his 20s. Patient was treated for pneumonia last May. Patient reports having shortness of breath since last couple of months. Prior to arrival, his daughter checked his pulse ox and it was in mid 80s. Patient denies history of blood clot. Patient denies productive cough. Admitting CXR: Interstitial coarsening without airspace opacity. Admitting CTA chest: No evidence of PE, interstitial lung disease again seen. Respiratory panel negative Continue with home meds, continue with Tessalon Perles. Pulmonology evaluated the patient. Sent basic interstitial lung disease work-up including ALEJANDRO and other antibody work-up. Will f/u pt on 10/03. 2 step test prior to dischargepatient needs 2 L oxygen continuously. PFT and pulmonology follow-up as an outpatient. Patient made aware. #. Abdominal distention #. Ascites History of hepatocellular carcinoma and ascites Admitting abdominal ultrasound: Mild ascites, not enough to perform paracentesis. Admitting portal vein ultrasound: Patent portal veins with appropriately directed flow. Cirrhosis with ascites. GI evaluated, patient started on diuretics Lasix 20 mg and spironolactone 50 mg Daily, low-sodium diet Patient will need to get blood work BMP done in a week time upon discharge. Patient made aware. #. Other chronic medical conditions: Laryngeal pharyngeal reflux disease, hypothyroidism, anemia of chronic disease Continue with/resume home medications as and when appropriate DVT prophylaxis: On Lovenox Full code 08/31: Patient's daughter given update at bedside about the patient's current status and the need to follow-up with pulmonology and GI doctor as an outpatient, she voiced understanding and was agreeable to the plan of care. Answered all her questions. Patient was discharged to home with following instruction at the point of discharge: Follow-up with primary care physician within a week time. You will need a blood test BMP done in a week time upon discharge. Follow-up with lung doctor as an outpatient as scheduled 10/03. As discussed at the bedside, follow-up with serologic work-ups for your interstitial lung disease with your primary care physician or lung doctor as an outpatient. You were started on diuretics because of ascites secondary to liver cirrhosis. You will need follow-up with GI doctor as an outpatient. You will need oxygen 2 L continuous upon discharge. Take medications as prescribed. Total Time Total Time Spent Total Time Spent (In Minutes): 40 Discharge Plan Discharge Items Patient Disposition: Home - Self-Care Reason For Visit: SOB Discharge Diagnosis: Interstitial lung disease Acute respiratory failure Ascites and liver cirrhosis Activity: Resume your previous activity Non-emergency contact: Primary Care Provider Call non-emergency contact if: you have any medication questions, your symptoms worsen and your temperature is above 101 Follow-up/Referrals: Tesfaye Ross MD [Physician] - 10/03/21 9:30 am ([facility]) Suresh Mathis MD [Primary Care Provider] - Diet: Heart Healthy and Low Sodium (2gm) Fluids: 2000ml (8 cups) Addtl Attending Provider Instructions: Follow-up with primary care physician within a week time. You will need a blood test BMP done in a week time upon discharge. Follow-up with lung doctor as an outpatient as scheduled 10/03. As discussed at the bedside, follow-up with serologic work-ups for your interstitial lung disease with your primary care physician or lung doctor as an outpatient. You were started on diuretics because of ascites secondary to liver cirrhosis. You will need follow-up with GI doctor as an outpatient. You will need oxygen 2 L continuous upon discharge. Take medications as prescribed. Addtl Rn Palliative Care Provider Instructions: For chronic cough patient may take the following over the counter medications: Chlorpheniramine 4mg by mouth every 6 hours until seen by Dr. Ross Flonase nasal spray 1-2 sprays each nostril each morning until seen by Dr. Ross Pseudoephedrine 30mg by mouth twice daily for two weeks Pending Studies at Discharge: Yes (Admitting blood culture final results. Serologic work-up for ILD.) Stand-Alone Forms: My [employer], Smoking Cessation Medications and DC Order Prescriptions: New spironolactone 25 mg Tablet 50 mg PO QAM Qty: 60 RF: 0 furosemide 20 mg Tablet 20 mg PO QAM Qty: 30 RF: 0 magnesium oxide 400 mg (241.3 mg magnesium) Tablet 400 mg PO BID 7 Days Qty: 14 RF: 0 benzonatate 100 mg capsule 100 mg PO TID 7 Days Qty: 21 RF: 0 Continued levothyroxine 112 mcg tablet 112 mcg PO QAM Qty: 90 RF: 0 psyllium husk 3.4 gram/5.4 gram powder 1 tbs PO DAILY PRN (Reason: Constipation) Qty: 60 RF: 0 polyethylene glycol 3350 17 gram/dose powder 17 gm PO DAILY PRN (Reason: Constipation) Qty: 1 RF: 0 Centrum Silver Men 300-600-300 mcg Tablet 1 tab PO DAILY RF: 0 pantoprazole 40 mg Tablet,Delayed Release (Dr/Ec) 40 mg PO QAM RF: 0 benzonatate 100 mg capsule 100 mg PO TID PRN (Reason: Cough) RF: 0 Flovent HFA 110 mcg/actuation HFA aerosol inhaler 1 puff INHALATION UD PRN (Reason: short of breath) RF: 0 propranolol 60 mg Tablet 60 mg PO BID RF: 0 Discharge Orders: Discharge Order (Routine); Ordered 09/01/21 Ordered By: Hattie Baca Admission Data Admit Date/Time: 08/30/21 23:44 Attending Provider: Hattie Baca Admit Provider: Barry Mullins Primary Care Provider: Suresh Mathis Other Providers: Barry Mullins ; Dante Bell ; Fransico Jackson ; Analy Cooley ; Gregory Stahl ; Rose Aragon ; Mustapha Gómez ; Maria C Kapoor ; Anamaria Paz ; Carlos Miranda ; Khushboo Mccartney ; Paty Lopez ; Teresita Knight ; Shannen Crawford ; Sarath Nagy
[2021-09-01] MEDS ORDERED: MAGNESIUM OXIDE 400 MG TAB PO SCH (13:00)
[2021-09-01 13:06] LABS: C Reactive Protein 3.41 mg/dl (0-0.5)
[2021-09-02] MEDS ORDERED: FUROSEMIDE 20 MG TAB PO SCH (09:00)
[2021-09-02] MEDS ORDERED: SPIRONOLACTONE 25 MG TAB PO SCH (09:00)
[2021-09-02 22:06] LABS: Anti Nuclear Antibody Screen NEGATIVE (NEGATIVE); Cyclic Citrullinated Pep IgG <16 UNITS; JO 1 Antibody <1.0 NEG AI (<1.0 NEG); Rheumatoid Factor 67 IU/mL (<14)
== END 2021-09-01 13:51 | disposition home or self-care (01) | DRG 196 ==
LOC: ED 16:46 → EDINP 23:44 → 2N 08-31 20:31